=== PATIENT | female | born 1980 | race Caucasian/White ===

== ENCOUNTER 2025-02-06 10:37 | Outpatient (CLI) | payer OTHER, SELFPAY ==
--- OUTSIDE RECORDS SUMMARY | 2025-02-06 10:49 | XMS_ITS | Encounter Summary ---
Author Organization [facility] Address [address] [place] [address] Care Team Providers Care Title Searcher Name Role Phone Unavailable Primary Care Provider Unavailabl e Encounter Details Date Type Department Care Team (Late st Contact Info) Description 03/07/2024 Lab Requisition [facility] - DermPath Lab [address] [place] [id number] Eloisa Collier PA-C [address] [place] [address] Melanocytic nevi of scalp and neck; Melanocytic nevi of trunk; Other skin changes; Other disturbances of skin sensation Social History Tobacco Use Types Packs/Day Years Used Date Smoking Tobacco: Never Smokeless Tobacco: Never Alcohol Use Standard Drinks/Week Comments Yes 0 (1 standard drink = 0.6 oz pur e alcohol) 0-2 per week Comments No Sex and Gender Information Value Date Recorded Sex Assigned at Not on file Legal Sex Female 7:36 PM CDT Gender Identity Not on file Sexual Orientation Not on file 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
--- OUTSIDE RECORDS SUMMARY | 2025-02-06 10:49 | XMS_ITS | Clinical Summary ---
Author Organization [facility] Address [address] [place] [address] Care Team Providers Care Plant Protection Supervisor Name Role Phone Ileana Pickens MD Primary Care Provider Allergies No known active allergies Medications losartan (COZAAR) 100 mg tabletIndicatio ns:hypertension Take 1 tablet (100 mg total) by mouth nightly Active hydroCHLOROthia zide (HYDRODIURIL) 25 mg tabletIndicatio ns:hypertension Take 25 mg by mouth nightly Active multivitamin capsule Take 1 capsule by mouth nightly Active triamcinolone acetonide (NASACORT NASL) Administer into affected nostril(s) as needed Active dextroamphetami ne-amphetamine XR (ADDERALL XR) 10 mg 24 hr capsule TAKE 1 CAPSULE BY MOUTH EVERY MORNING NEEDED 4 Active metFORMIN XR (GLUCOPHAGE XR) 500 mg 24 hr tablet Take 1 tablet (500 mg total) by mouth daily 4 Active venlafaxine XR (EFFEXOR-XR) 75 mg 24 hr capsule Take 1 capsule (75 mg total) by mouth daily 4 Active buPROPion SR (ZYBAN) 150 mg 12 hr tabletIndicatio ns:Hypoactive sexual desire disorder Take 1 tablet (150 mg total) by mouth 2 (two) times a day 60 tablet 3 5 Active drospirenone-et hinyl estradioL (GOVIND,GIANVI) 3-0.02 mg per tabletIndicatio ns:PMDD (premenstrual dysphoric disorder) Take 1 tablet by mouth daily Skip placebos 84 tablet 3 5 Active Active Problems Problem Noted Date Diagnosed Date PMS (premenstrual syndrome) 02/05/2021 Encounter for cosmetic surgery 03/28/2020 Overview (03/28/2020): Added automatically from request for surgery [id number] Encounters Date Type Department Care Team Description 01/04/2025 1:45 PM CDT Office Visit [facility] Obstetrics and Gynecology [address] [facility] 1st Floor [address] [place] [address] Taylor Gilbert MD PMDD (premenstrual dysphoric disorder) (Primary Dx); Hypoactive sexual desire disorder from Last 3 Months Immunizations Immunization Administration Dates Next Due Pfizer SARS-CoV-2 Monovalent Vaccination (12+ Yrs) PURPLE 10/01/2020,09/09/2020 Surgical History Surgery Date Site/Laterality Comments OVARIAN CYST REMOVAL APPENDECTOMY BLADDER SUSPENSION DILATION AND CURETTAGE OF UTERUS ENDOMETRIAL ABLATION WISDOM TOOTH EXTRACTION Medical History Medical History Date Comments Hypertension PONV (postoperative nausea and vomiting) Relived with patch Hyperlipidemia Family History Medical History Relation Name Comments Brain Aneurysm Father Hypertension Father Diabetes Maternal Grandfather Hyperlipidemia Mother Hypertension Mother Diabetes Paternal Grandfather Relation Name Status Comments Father Maternal Grandfather Mother Paternal Grandfather Social History Tobacco Use Types Packs/Day Years Used Date Smoking Tobacco: Never Smokeless Tobacco: Never Tobacco Cessation:Counseling Given: Not Answered Alcohol Use Standard Drinks/Week Comments Yes 3 (1 standard drink = 0.6 oz pur e alcohol) PHQ-2 Answer Date Recorded PHQ-2 Total Score (If total score is 3 or more points, staff should administer the PHQ-9) 2 01/18/2022 Comments No Sex and Gender Information Value Date Recorded Sex Assigned at Not on file Legal Sex Female 11:19 AM CDT Gender Identity Female 09/28/2023 11:17 AM BLINDSTITCH LAPEL PADDER Sexual Orientation Not on file Obstetrics History Para Term AB IAB SAB Ectopic Multiple Livin g Live Births 3 2 2 0 1 0 1 0 0 2 2 Date Outcome GA Total Labor Labor/2nd/3rd Weight Sex Type Anes PTL Molly A1 A5 Name Clin SAB 08/27 13 Term 41w 0d 4.281 kg (9 lb 7 oz) M Vag-S pont Epidura l N Living Complications:None 03/27 16 Term 37w 0d 3.175 kg (7 lb) F Vag-S pont Epidura l N Living Complications:None Last Filed Vital Signs Vital Sign Reading Time Taken Comments Blood Pressure 135/86 01/04/2025 1:58 PM CDT Pulse 73 01/04/2025 1:58 PM CDT Temperature 37.2 C (99 F) 03/17/2024 2:24 PM CDT Respiratory Rate 21 03/17/2024 2:24 PM CDT Oxygen Saturation 99% 03/17/2024 2:24 PM CDT Inhaled Oxygen Concentration - - Weight 72.1 kg (159 lb) 01/04/2025 1:58 PM CDT Height 177.8 cm (5' 10) 01/04/2025 1:58 PM CDT Body Mass Index 22.81 01/04/2025 1:58 PM CDT Plan of Treatment Health Maintenance Due Date Last Done Comments Hepatitis C Screening 1982 Varicella Vaccines (1 of 2 - 13+ 2-dose series) 1995 Hepatitis B Screening 2000 Cervical Cancer Screening 01/18/20232021, 01/14/2021 Depression Screening 01/18/2023 01/18/2022, 01/14/2021 Regular Well Visit/Exam 18-64 01/18/2023, 01/14/2021 Covid-19 Vaccine (2023-2 5 season) 2024 05/09/2021, 10/01/2020, 09/09/2020 Breast Cancer Screening-Mammogram 02/13/2025 02/14/2024, 08/27/2022, 03/20/2020 Influenza Vaccine (Season Ended) 2025 05/09/2021, 05/16/2020, 06/08/2012 DTaP/Tdap/Td Vaccine (3 - Td or Tdap) 02/09/2026 02/10/2016, 08/22/2012, 08/08/2001 HPV Vaccines Aged Out No longer eligi ble based on patient's age to complete this topic Pneumococcal vaccine <65 Aged Out No longer eligible based on patient's age to complete this topic Procedures Procedure Name Priority Date/Time Associated Diagnosis Comments SCREENING MAMMOGRAM BILATERAL W RIVER Schedule Routine, Read Routine (OP Routine) 02/14/2024 11:53 AM CDT Screening mammogram, encounter for PAP AND HIGH RISK HPV, REFLEX TO GENOTYPING Routine 01/18/2022 11:44 AM CDT Well woman exam from Last 3 Months or Most Recently Relevant to Health Maintenance Results * Screening Mammogram Bilateral W River (02/14/2024 11:53 AM CDT) Anatomical Region Laterality Modality Breast Bilateral Mammography 02/14/2024 12:4 5 PM CDT Impressions 02/14/2024 12:45 PM CDT No evidence of malignancy in either breast. FINAL ASSESSMENT: BI-RADS Category 2: Benign. RECOMMENDATION: Recommend return for annual screening mammogram in 12 months. Electronically signed by: ELENA VEE MD Narrative 02/14/2024 12:45 PM CDT EXAMINATION: BILATERAL SCREENING MAMMOGRAM COMPARISON: 08/27/2022, 03/20/2020 TECHNIQUE: Full-field 2D and digital breast tomosynthesis (DBT) images were obtained. CAD was utilized. BREAST PARENCHYMAL COMPOSITION: The breasts are heterogenously dense, which may obscure small masses. FINDINGS: There is no suspicious mass, calcification, or distortion in either breast. Changes consistent with bilateral reduction mammoplasty are noted. us Self Screening Mammogram IMG MAMMO PROCEDURES Fi nal Result * Pap and High Risk HPV, reflex to Genotyping (01/18/2022 11:44 AM CDT) Clinical indication Comment [facility] - 01 Comment: NEGATIVE FOR INTRAEPITHELIAL LESION OR MALIGNANCY. THIS SPECIMEN WAS RESCREENED PART OF OUR SILVERWARE WASHER PROGRAM. Specimen adequacy: Comment [facility] - 01 Comment: Satisfactory for evaluation. No endocervical component is identified. The absence of an endocervical component was confirmed by an additional screening evaluation. Clinician provided ICD10 Comment [facility] 02 Comment:Z01.419 Performed by Comment [facility] - 01 Comment:Debra Garcia, Cytotech nologist ([facility]) QC reviewed by Comment [facility] - 01 Comment:He Wooten, Cyto technologist ([facility]) . . [facility] - 01 Note: Comment [facility] 02 Comment: The Pap smear is a screening test designed to aid in the detection of premalignant and malignant conditions of the uterine cervix. It is not a diagnostic procedure and should not be used as the sole means of detecting cervical cancer. Both false-positive and false-negative reports do occur. Test methodology Comment [facility] 02 Comment: This liquid based ThinPrep(R) pap test was screened with the use of an image guided system. HPV Aptima Negative Negative [facility] 03 Comment: This nucleic acid amplification test detects fourteen high-risk HPV types (16,18,31,33,35,39,45,51,52,56,58,59,66,68) without differentiation. Thin prep 01/18/2022 11:4 4 AM CDT 01/19/2022 Narrative [facility] - 01/22/2022 5:08 PM CDT [facility] [address] [place] [id number] Advertising Copy Writer: Suman Moore MD, Phone: [phone] Performed at: 02 - [address] [id number] Advertising Copy Writer: Shavon Manning MD, Phone: [phone] Performed at: 03 - [address] [id number] Advertising Copy Writer: Shavon Manning MD, Phone: [phone] Specimen Comment: Source.............Cervix;Endocervix Specimen Comment: No. of containers..01 ThinPrep Vial Merna Becker NP LAB CYTOLOGY ORDERABLES Final Re sult [facility] - 01 LAB [facility] 02 LAB ALON 03 from Last 3 Months or Most Recently Relevant to Health Maintenance Insurance [employer] CHOICE PLUS [id number] [place] [address] CHOICE PLUS Care Teams Plant Protection Supervisor Relationship Specialty [place] [address] [facility] [address] [place] [address] PCP - General Plastic Surgery 04/15/20
--- OUTSIDE RECORDS SUMMARY | 2025-02-06 10:49 | XMS_ITS | Clinical Summary ---
Author Organization [facility] Address [address] [place] [place] [address] Care Team Providers Care Gizzard Skin Remover Name Role Phone Unavailable Primary Care Provider Unavailabl e Source Comments [facility],non-owned Affiliates and Associated Physician Practices is amultiple site organization consisting of ambulatory clinics and hospital sitesin [place], [place], [place] and [place]. This disclosure is being madepursuant to the Care Everywhere program and may not contain all information available regarding this patient. Last updated 18.[facility] Allergies Active Allergy Reactions Criticality Noted Date Comments Codeine Rash Medium 10/19/2017 Medications * Be aware that medications may not be up to date on this document. Alwaysverify current medications with the patient. PROGESTERONE PO Acti ve multivitamin daily tablet Take 1 tablet by mouth daily with food Active hydroCHLOROthiaz jesusita (HYDRODIURIL) 25 MG tablet Take 25 mg by mouth once daily Active Active Problems Problem Noted Date Diagnosed Date Essential hypertension 10/01/2018 Overview (10/08/2018): 09/26 Renin 0.476 aldosterone 6.3 (ratio 13) Pure hypercholesterolemia 10/01/2018 Overview (10/04/2018): 09/26 Cholesterol 213 HDL 43 LDL 134 triglyceride 180, normal CMP 06/16 cholesterol 193 HDL 68 LDL 101 triglyceride 121 06/15 cholesterol 176 HDL 56 LDL 106 triglyceride 69 Family History Medical History Relation Name Comments Aneurysm, Brain Father at age 49 Other - Cardiac Father CAD (Coronary Artery Disease) Mother Hypertension Mother Relation Name Status Comments Brother Alive no heart diseas e Daughter Alive no heart dz Father (Age 49) no heart d isease; brain aneurysm; HTN in 40s Mother Alive carotid dz and PAD at 61; HTN onset in 30s Son Alive no heart dz Social History Tobacco Use Types Packs/Day Years [...] file Not on file Not on file Last Filed Vital Signs Vital Sign Reading Time Taken Comments Blood Pressure 138/86 07/31/2019 11:56 AM BINDER STRIPPER MACHINE Pulse 88 07/31/2019 11:56 AM BINDER STRIPPER MACHINE Temperature 36.7 C (98 F) 07/31/2019 11:56 AM BINDER STRIPPER MACHINE Respiratory Rate 18 07/31/2019 11:56 AM BINDER STRIPPER MACHINE Oxygen Saturation 98% 07/31/2019 11:56 AM BINDER STRIPPER MACHINE Inhaled Oxygen Concentration - - Weight 81.6 kg (180 lb) 07/31/2019 11:56 AM BINDER STRIPPER MACHINE Height 177.8 cm (5' 10) 07/31/2019 11:56 AM BINDER STRIPPER MACHINE Body Mass Index 25.83 07/31/2019 11:56 AM BINDER STRIPPER MACHINE Plan of Treatment Health Maintenance Due Date Last Done Comments MAMMOGRAM 1982 HIV SCREENING 1997 HEPATITIS C SCREENING 04/01/2000 DTAP/TDAP/TD VACCINES (1 - Tdap) 2001 HEPATITIS B VACCINE (1 of 3 - 19+ 3-dose series) 2001 PAP SMEAR 09/22/2021 09/22/2018 LIPID TESTING 10/03/2023 10/03/2018 COVID-19 VACCINE (1 - 2023-2 5 season) 2024 DEPRESSION SCREENING 08/08/2024 INFLUENZA VACCINE (#1) 2025 06/08/2012 ZOSTER VACCINE (1 of 2) 2032 HIB VACCINE Aged Out No longer eligi ble based on patient's age to complete this topic HPV VACCINE Aged Out No longer eligi ble based on patient's age to complete this topic MENINGOCOCCAL (Group B) VACC INE SHARED DECISION-MAKING Aged Out No longer eligibl e based on patient's age to complete this topic MENINGOCOCCAL GROUPS A/C/Y/W VACCINE Aged Out No longer eligible b ased on patient's age to complete this topic PNEUMOCOCCAL VACCINE Aged Out No long er eligible based on patient's age to complete this topic Procedures Procedure Name Priority Date/Time Associated Diagnosis Comments LIPID PROFILE REFLEX LDL DIRECT Routine 10/03/2018 10:02 AM BINDER STRIPPER MACHINE Pure hypercholesterolemia from Last 3 Months or Most Recently Relevant to Health Maintenance Results * (ABNORMAL) LIPID PROFILE REFLEX LDL DIRECT (10/03/2018 10:02 AM BINDER STRIPPER MACHINE) Cholesterol 213(H) 100 - 199 mg/dL [facility] INSURANCE BILL Triglycerides 180(H) 0 - 149 mg/dL [facility] INSURANCE BILL HDL Cholesterol 43 >39 mg/dL [facility] INSURANCE BILL VLDL Calculated 36 5 - 40 mg/dL [facility] INSURANCE BILL LDL Calculated 134(H) 0 - 99 mg/dL [facility] INSURANCE BILL Comment NOT NEEDED [facility] INSURANCE BILL Comment:Ancillary determined the test is not needed Cholesterol/HDL Ratio 5.0(H) 0.0 - 4.4 ratio [facility] INSURANCE BILL Comment: T. Chol/HDL Ratio Men Women 1/2 Avg.Risk 3.4 3.3 Avg.Risk 5.0 4.4 2X Avg.Risk 9.6 7.1 3X Avg.Risk 23.4 11.0 LDL/HDL Ratio 3.1 0.0 - 3.2 ratio [facility] INSURANCE BILL Comment: LDL/HDL Ratio Men Women 1/2 Avg.Risk 1.0 1.5 Avg.Risk 3.6 3.2 2X Avg.Risk 6.2 5.0 3X Avg.Risk 8.0 6.1 FASTING Blood BLOOD SPECIMEN / Unknown 10/03/2018 10:02 AM BINDER STRIPPER MACHINE 10/03/2018 Narrative [facility] INSURANCE BILL - 10/04/2018 7:15 AM BINDER STRIPPER MACHINE A courtesy copy of this report has been sent to the patient. Resulting Agency Comment [facility] [address] [facility] [id number] Oli Tate MD LAB - CHEMISTRY ORDERABLES F inal Result [facility] INSURANCE BILL [address] [place] [address] from Last 3 Months or Most Recently Relevant to Health Maintenance Insurance ANTHEM ANTHEM
--- OUTSIDE RECORDS SUMMARY | 2025-02-06 10:49 | XMS_ITS | Referral Summary ---
Author Organization [facility] Address [address] [facility] [place] [address] Care Team Providers Care Rf Engineer Name Role Phone Ileana Pickens MD Primary Care Provider Encounters Date Type Department Care Team Description 01/04/2025 1:45 PM CDT Office Visit [facility] Obstetrics and Gynecology [address] [facility] 1st Floor [address] [place] [address] Taylor Gilbert MD PMDD (premenstrual dysphoric disorder) (Primary Dx); Hypoactive sexual desire disorder from Last 3 Months Allergies No known active allergies Medications losartan [...] (03/28/2020): Added automatically from request for surgery [id number] Immunizations Immunization Administration Dates Next Due Benjamin's Desk SARS-CoV-2 Monovalent Vaccination (12+ Yrs) PURPLE 10/01/2020,09/09/2020 Social History Tobacco Use Types Packs/Day Years [...] CDT Gender Identity Female 09/28/2023 11:17 AM 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 Specimen adequacy: Comment [facility] - 01 Comment: Satisfactory for evaluation. No endocervical component is identified. The absence of an endocervical component was confirmed by an additional screening evaluation. Clinician provided ICD10 Comment [facility] 02 Comment:Z01.419 Performed by Comment [facility] - 01 Comment:Debra Garcia, Cytotech nologist ([facility]) QC reviewed by Comment [facility] - 01 Comment:He Wooten, Cyto technologist ([facility]) . . [facility] - 01 Note: Comment [...] 01/22/2022 5:08 PM CDT [facility] at: [facility] [address] [place] [id number] Masonry Contractor Administrator: Suman Moore MD, Phone: [phone] Performed at: - [address] [id number] Masonry Contractor Administrator: Shavon Manning MD, Phone: [phone] Performed at: 03 - [address] [id number] Masonry Contractor Administrator: Shavon Manning MD, Phone: [phone] Specimen Comment: Source.............Cervix;Endocervix Specimen Comment: No. of containers..01 ThinPrep Vial Merna Becker NP LAB CYTOLOGY ORDERABLES Final Re sult [facility] - 01 LAB [facility] 02 LAB ALON 03 from Last 3 Months or Most Recently Relevant to Health Maintenance Insurance [facility] CHOICE PLUS [id number] [place] [address] CHOICE PLUS Care Teams Rf Engineer Relationship Specialty [place] [address] [facility] [address] [place] [address] PCP - General Plastic Surgery 04/15/20
[2025-02-06 18:56] LABS: Hematocrit 43.9 % (37.0-47.0); Hemoglobin 14.0 g/dL (12.0-15.0); Immature Granulocyte Percent A 0.2 % (0-0.5); Lymphocytes Absolute Auto 2.93 K/mm3 (0.9-3.2); Mean Corpuscular HGB Conc 31.9 g/dl (32-36); Mean Corpuscular Hemoglobin 29.1 pg (26-34); Mean Corpuscular Volume 91.3 fl (80-100); Nucleated Red Blood Cells Absolute Auto 0.000 K/mm3 (0.0-0.012); Nucleated Red Blood Cells Perc 0.0 % (0.0-0.2); Platelet Count Result 384 k/mm3 (150-375); Red Blood Count 4.81 M/mm3 (4.2-5.4); White Blood Count 5.5 K/mm3 (4.5-10.0)
[2025-02-06 19:04] LABS: Alanine Aminotransferase 16 U/L (6-35); Albumin Level 4.3 g/dL (3.5-5.1); Alkaline Phosphatase 55 U/L (38-126); Anion Gap 7 mmol/L (4-12); Aspartate Amino Transferase 54 U/L (14-36); Bilirubin,Total 0.4 mg/dL (0.2-1.3); Blood Urea Nitrogen 11 mg/dL (7-17); Calcium 9.0 mg/dL (8.4-10.2); Carbon Dioxide 24 mmol/L (22-30); Chloride 107 mmol/L (98-107); Cholesterol 244 mg/dL (0-200); Estimated Glomerular Filt Rate > 60; Glucose 99 mg/dL (65-110); HDL Direct 68 mg/dL; Magnesium 2.2 mg/dL (1.6-2.3); Potassium 4.1 mmol/L (3.4-5.0); Sodium 138 mmol/L (137-145); Total Protein 7.7 g/dL (6.3-8.2); Triglycerides 166 mg/dL (<150)
[2025-02-06 19:30] LABS: Hemoglobin A1C. 5.4 % (<5.7)
[2025-02-06 19:34] LABS: Thyroid Stimulating Hormone 3.030 uIU/mL (0.465-4.680)
== END 2025-02-06 10:38 | disposition home or self-care (01) ==
LOC: ANHBWCLAB 10:39
PROVIDERS: PCP Nurse Practitioner Adult Health; Visit Provider Nurse Practitioner Adult Health
DX: Z13.9 Encounter for screening, unspecified (principal); I10 Essential (primary) hypertension; R73.03 Prediabetes
CPT/HCPCS: 36415; 80053; 80061; 83036; 83735; 84443; 85025

== ENCOUNTER 2025-02-13 14:49 | Outpatient (CLI) | payer OTHER, SELFPAY ==
--- OUTSIDE RECORDS SUMMARY | 2025-02-13 14:52 | XMS_ITS | Encounter Summary ---
Author Organization [facility] Address [address] [place] [address] Care Team Providers Care Farrowing Worker Name Role Phone Gerald Allen MD Primary Care Provider [phone] Encounter Details Date Type Department Care Team (Latest Contact Info) Description 09/06/2007 Outpatient Historical [facility] Bartolo Lin MD NO ADDRESS ON FILE Lump or Mass in Breast Social History Tobacco Use Types Packs/Day Years Used Date Smoking Tobacco: Never Assessed Comments Unknown Sex and Gender Information Value Date Recorded Sex Assigned at Not on file Legal Sex Female 2:44 AM INDUCTION COORDINATION POWER ENGINEER Gender Identity Not on file Sexual Orientation Not on file documented as of this encounter Plan of Treatment Not on file documented as of this encounter Procedures Procedure Name Priority Date/Time Associated Diagnosis Comments US BREAST Routine 09/06/2007 8:23 AM INDUCTION COORDINATION POWER ENGINEER documented in this encounter Results * US BREAST (09/06/2007 8:23 AM INDUCTION COORDINATION POWER ENGINEER) Anatomical Region Laterality Modality Other 09/06/2007 8:23 AM INDUCTION COORDINATION POWER ENGINEER Narrative 09/06/2007 11:31 AM INDUCTION COORDINATION POWER ENGINEER [facility] [address] [place], [place] [address] Admit Date: 09/06/2007 YANCI ROBLEDO Sex: F Admit Prov: BARTOLO JARVIS Date: 1980 Primary Care Prov: RADHA BRAY CMRN: [id number] Room: SANDRO SSN: [id number] IMAGING SERVICES Ordering Prov: BARTOLO JARVIS Accession Number: [id number] Interpretation Breast sonogram, 09/06/2007 History: Palpable lump upper-outer right breast. Sonography of the palpable area in the upper-outer right breast reveals heterogeneously dense or echogenic fibroglandular tissue. No discrete mass either cystic or solid is identified. No suspicious shadowing or distortion is identified. Impression: Category 1 negative Normal sonographic appearance to the palpable area in the upper-outer right breast. Clinical followup therefore recommended. Dictated by: LAMONT MCKINNEY Electronically signed by: LAMONT MCKINNEY 09/06/2007 11:31 Transcribed: 09/06/2007 08:27 AMK Procedure Note Provider, Historical - 09/06/[address] [address] Admit Date: 09/06/2007 YANCI ROBLEDO Sex: F Admit Prov: BARTOLO JARVIS Date: 1980 Primary Care Prov: RADHA BRAY CMRN: [id number] Room: SANDRO SSN: [id number] IMAGING SERVICES Ordering Prov: BARTOLO JARVIS Interpretation Breast sonogram, 09/06/2007 History: Palpable lump upper-outer right breast. Sonography of the palpable area in the upper-outer right breastreveals heterogeneously dense or echogenic fibroglandular tissue. No discretemass either cystic or solid is identified. No suspicious shadowing ordistortion is identified. Impression: Category 1 negative Normal sonographic appearance to the palpable area in the upper-outerright breast. Clinical followup therefore recommended. Dictated by: LAMONT MCKINNEY Electronically signed by: LAMONT MCKINNEY 09/06/2007 11:31 Transcribed: 09/06/2007 08:27 AMK Bartolo Jarvis MD ORDERABLES Final Resul t documented in this encounter Visit Diagnoses Diagnosis Lump or mass in breast documented in this encounter Care Teams Farrowing Worker Relationship Specialty Start Date End Date Gerald Allen MD PCP - General Family Practice 03/05/20 documented as of this encounter
--- OUTSIDE RECORDS SUMMARY | 2025-02-13 14:52 | XMS_ITS | Encounter Summary ---
Author Organization [facility] Address [address] [place] [address] Care Team Providers Care Production Team Member Name Role Phone Melony Murry NP Primary Care Provider [phone] Encounter Details Date Type Department Care Team (Late st Contact Info) Description 02/09/2025 Results Follow-Up [facility] at [address] [id number] Irish Padilla NP [address] [facility] [address] [place], [place] [id number] Throat culture Throat Social History Tobacco Use Types Packs/Day Years Used Date Smoking Tobacco: Never Smokeless Tobacco: Never Alcohol Use Standard Drinks/Week Comments Yes 3 [...] CDT Gender Identity Female 09/28/2023 11:17 AM NATIONAL RECRUITER Sexual Orientation Not on file documented as of this encounter Plan of Treatment Not on file documented as of this encounter Visit Diagnoses Not on filedocumented in this encounter Care Teams Production Team Member Relationship Specialty Start Date End Date Melony Murry NP [address] [place] [place] [address] [place] [address] PCP - General Nurse Practitioner 02/08/25 documented as of this encounter
--- OUTSIDE RECORDS SUMMARY | 2025-02-13 14:52 | XMS_ITS | Clinical Summary ---
Author Organization [facility] cine Address [address] [place] [address] Care Team Providers Care Rn Staffing Name Role Phone Gerald Allen MD Primary Care Provider [phone] Allergies Active Allergy Reactions Criticality Noted Date Comments Amoxicillin-Pot Clavulanate Rash Low 05/03/20 06 Codeine Rash Low 05/03/2006 Medications multivitamin (DAILY-CHELSEA) tablet Take 1 Tablet by mouth daily. Active venlafaxine (EFFEXOR XR) 150 mg Extended Release 24 hour capsuleIndicati ons: depression Take 1 Capsule (150 mg) by mouth daily. 90 Capsule 4 09/22/2018 Active progesterone micronized (PROMETRIUM) 200 mg CapsuleIndicati ons:PMS (premenstrual syndrome) Take 1 Capsule (200 mg) by mouth daily. 90 Capsule 4 09/22/2018 Active Active Problems Problem Noted Date Diagnosed Date Menorrhagia with regular cycle 09/27/2017 SHEILA (stress urinary incontinence, female) 201703/30/16 - - A2GDM - [place] - DS 03/29/2016 Normal labor 03/29/2016 PIH ( induced hyper tension), previous condition 09/23/2015 s/p 08/22, N/V/D Gastroen teritis? Elevated BP, Pre-E labs (elevated LFTs trending down UA neg protein) Repeat Pre-E labs in AM pending, Blount neg, Hepatitis panel pending 08/26/2012 Nausea with vomiting 08/26/2012 1/15, boy 08/23/2012 Active labor 08/21/2012 Acne 06/06/2007 Irritable bowel syndrome 05/03/2006 Generalized anxiety disorder 05/03/2006 Family history of other neurological diseases Resolved Problems Problem Noted Date Diagnosed Date Resolved Date Missed ab s/p suction D&C on 09/12/14 09/11/2014 11/18/2015 labor, SROM @0410, Gbs-, O+, inc BPs- labs wnl 08/22/2012 08/23/2012 Acute sinusitis, unspecified 10/12/2007 07/02/2008 Obstruction of eustachian tube, unspecified 10/12/2007 07/02/2008 Encounters Date Type Department Care Team Description 01/22/2025 External Device Data ST[facility] ABSTRACTION Provider, Abstract 01/01/2025 External Device Data ST[facility] ABSTRACTION Provider, Abstract 12/26/2024 External Device Data ST[facility] ABSTRACTION Provider, Abstract 12/25/2024 External Device Data ST[facility] ABSTRACTION Provider, Abstract 12/18/2024 External Device Data STL ABSTRACTION Provider, Abstract 12/18/2024 External Device Data STL ABSTRACTION Provider, Abstract 12/18/2024 External Device Data STL ABSTRACTION Provider, Abstract from Last 3 Months Immunizations Immunization Administration Dates Next Due (ADACEL/BOOSTRIX)(10 YR UP) TDAP VACCINE, 0.5ML, IM 02/10/2016,08/22/2012 (TDVAX)(7 YRS UP) TETANUS AN D DIPHTHERIA TOXOIDS, ADSORBED (2 LF OF TETANUS TOXOID AND 2 LF OF DIPHTHERIA TOXOID), 0.5ML (PF), IM 08/08/2001 Influenza Seasonal Unspecified Formulation IM Skin Test TB 03/16/2010 Family History Medical History Relation Name Comments Healthy Brother Other Father brain aneurysm Heart Disease Maternal Grandfather Heart Disease Maternal Grandmother Hypertension Mother Other Mother high cholestero l Diabetes Paternal Grandfather Breast Cancer Paternal Grandmother Other Paternal Grandmother lung pr oblems Ovarian Cancer Neg Hx Relation Name Status Comments Brother Alive Father Maternal Grandfather Maternal Grandmother Mother Alive Paternal Grandfather Alive Paternal Grandmother Social History Tobacco Use Types Packs/Day Years Used Date Smoking Tobacco: Never Smokeless Tobacco: Never Alcohol Use Standard Drinks/Week Comments Yes 0 (1 standard drink = 0.6 oz pur e alcohol) 0-1/month Comments No Sex and Gender Information Value Date Recorded Sex Assigned at Not on file Legal Sex Female 2:44 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 Gender Identity Not on file Sexual Orientation Not on file 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 Not on file Not on file Not on file Not on file Not on file Last Filed Vital Signs Vital Sign Reading Time Taken Comments Blood Pressure 154/110 09/22/2018 11:02 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 Pulse 82 05/18/2018 11:36 AM CDT Temperature 36.2 C (97.1 F) 11/21/2017 3:43 PM CDT Respiratory Rate 16 05/18/2018 11:36 AM CDT Oxygen Saturation 98% 11/21/2017 3:43 PM CDT Inhaled Oxygen Concentration - - Weight 85.3 kg (188 lb) 09/22/2018 11:02 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 Height 177.8 cm (5' 10) 09/22/2018 11:02 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 Body Mass Index 26.98 09/22/2018 11:02 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 Plan of Treatment Health Maintenance Due Date Last Done Comments HEPATITIS B VACCINES (1 of 3 - 19+ 3-dose series) 2001 PAP SMEAR 09/22/2021 09/22/2018, 02/04/2018, 08/13/2016, Additional history exists BREAST CANCER SCREENING 2022 03/20/2020 CERVICAL CANCER SCREENING 09/22/2023 HPV/Cotest (21-29) 09/22/2023 09/22/2018, 0 09/16/2017, 08/13/2016, Additional history exists HPV/Cotest (30-65) 09/22/2023 09/22/2018, 0 09/16/2017, 08/13/2016, Additional history exists INFLUENZA VACCINE (#1) 2025 06/08/2012 DTAP/TDAP/TD VACCINES (3 - Td or Tdap) 02/09/2026 02/10/2016, 08/22/2012, 08/08/2001 HPV VACCINES Aged Out No longer eligi ble based on patient's age to complete this topic Medical Devices Implanted Type Area Operations Business Partner Device Identifier Shelf Expiration Date Model / Serial / Lot Sling Desara System Kate-[id number] - [id number] Implanted:Qty: 1 on 11/21/2017 by Dane Donis DO at [facility] [place] S[place] N/A: Bladder [employer] 05/17/2022 [id number]-[id number] / / [id number] Procedures Procedure Name Priority Date/Time Associated Diagnosis Comments MAMMO SCREEN BILAT W OR WO CAD Routine 03/20/2020 11:19 AM CDT Breast cancer screening by mammogram CERV/VAG CYTO SCREEN PAP RLFX HPV Routine 09/22/2018 11:51 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 Well woman exam with routine gynecological exam from Last 3 Months or Most Recently Relevant to Health Maintenance Results * MAMMO SCREEN BILAT W OR WO CAD (03/20/2020 11:19 AM CDT) Anatomical Region Laterality Modality Breast Bilateral Mammography 03/20/2020 11:2 0 AM CDT Impressions 03/21/2020 12:28 PM CDT IMPRESSION: 1. No concerning findings. OVERALL FINAL ASSESSMENT: BI-RADS CATEGORY 1 - Negative. RECOMMENDATIONS: 1. Recommend annual mammography at age 40 or when clinically appropriate. 2. The patient may benefit from 3-D mammography and/or annual screening breast ultrasound given the density of the breast tissue. Narrative 03/21/2020 12:28 PM CDT BILATERAL SCREENING DIGITAL MAMMOGRAM WITH CAD DATE: 03/20/2020 11:19 AM DICTATION LOCATION: [facility] HISTORY: Routine yearly screening exam. TECHNIQUE: Standard images of both breasts were obtained on a digital system. CAD was utilized. COMPARISON: None, baseline. BREAST COMPOSITION: Heterogeneously dense, which limits the sensitivity of mammography FINDINGS: No concerning dominant masses, suspicious calcifications, parenchymal asymmetries or areas of architectural distortion are identified in either breast. Procedure Note Yonathan Olvera MD - 03/21/2020 BILATERAL SCREENING DIGITAL MAMMOGRAM WITH CAD DATE: 03/20/2020 11:19 AM DICTATION LOCATION: [facility] HISTORY: Routine yearly screening exam. TECHNIQUE: Standard images of both breasts were obtained on a digital system. CAD was utilized. COMPARISON: None, baseline. BREAST COMPOSITION: Heterogeneously dense, which limits the sensitivity of mammography FINDINGS: No concerning dominant masses, suspicious calcifications, parenchymal asymmetries or areas of architectural distortion are identified in either breast. IMPRESSION: 1. No concerning findings. OVERALL FINAL ASSESSMENT: BI-RADS CATEGORY 1 - Negative. RECOMMENDATIONS: 1. Recommend annual mammography at age 40 or when clinically appropriate. 2. The patient may benefit from 3-D mammography and/or annual screening breast ultrasound given the density of the breast tissue. us External Provider [facility] MAMMO ORDERABLES Final R esult * CERV/VAG CYTO SCREEN PAP RLFX HPV (09/22/2018 11:51 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) CLINICAL INFORMATION Information not provided 10/02/2018 9:19 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 [email or web address] LAST MENSTRUAL PERIOD Information not provided 10/02/2018 9:19 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 [email or web address] PREV PAP: Information not provided 10/02/2018 9:19 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 [email or web address] PREV BX: Information not provided 10/02/2018 9:19 AM [facility] SOURCE Endocervix 10/02/2018 9:19 AM [facility] ADEQUACY: SEE COMMENT 10/02/2018 9:19 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 [email or web address] Comment: Satisfactory for evaluation. Endocervical/transformation zone component present. Age and/or menstrual status not provided PAP INTERP Negative for intraepithelial lesion or malignancy. 10/02/2018 9:19 AM [facility] COMMENT This Pap test has been evaluated with computer assisted technology. 10/02/2018 9:19 AM [facility] WEDDING DAY COORDINATOR: SEE COMMENT 2018 9:19 AM [facility] Comment: RICHIE, CT(ASCP) CT screening location: [place] [address] [place] [address] EXPLANATORY NOTE SEE COMMENT 019 9:19 AM [facility] Comment: EXPLANATORY NOTE: The Pap is a screening test for cervical cancer. It is not a diagnostic test and is subject to false negative and false positive results. It is most reliable when a satisfactory sample, regularly obtained, is submitted with relevant clinical findings and history, and when the Pap result is evaluated along with historic and current clinical information. Genital SWAB OF ENDOCERVIX / Unknown Collection / Unknown 09/22/2018 11:51 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 09/26/2018 1:32 PM EMPLOYMENT AGENCY MANAGER Narrative [facility] - 10/02/2018 9:19 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 Performing Organization Information: Site ID: [place] Name[facility] Address: [address] [place] [address] Director: Sharyn Mayfield Dane Raza Super DO PATHOLOGY/CYTOLOGY ORDERABLES F inal Result [facility] [phone] from Last 3 Months or Most Recently Relevant to Health Maintenance Insurance BC[employer] BLUE PREFERRED [employer] Commercial Advance Directives For more information, please contact: [phone] * Full Code (Latest Code Status on File) Date Activated Date Inactivated Comments 11/21/2017 9:24 AM 11/21/2017 6:16 PM * Full Code Date Activated Date Inactivated Comments 03/30/2016 11:11 AM 04/01/2016 12:56 PM * Full Code Date Activated Date Inactivated Comments 03/29/2016 10:45 AM 03/30/2016 11:11 AM * Full Code Date Activated Date Inactivated Comments 09/12/2014 10:06 AM 09/12/2014 1:54 PM * Full Code Date Activated Date Inactivated Comments 09/12/2014 8:57 AM 09/12/2014 10:06 AM Care Teams Rn Staffing Relationship Specialty Start Date End Date Gerald Allen MD PCP - General Family Practice 03/05/20
--- OUTSIDE RECORDS SUMMARY | 2025-02-13 14:52 | XMS_ITS | Referral Summary ---
Author Organization [facility] Address [address] [place] [address] Care Team Providers Care Internal Carver Name Role Phone Melony Murry NP Primary Care Provider [phone] Encounters Date Type Department Care Team Description 02/09/2025 Results Follow-Up [facility] at [address] [phone] Irihs Padilla NP Throat culture Throat 02/08/2025 11:14 AM CDT - 02/08/2025 11:59 PM CDT Hospital Encounter [address] [address] Acute sore throat Discharge Disposition: Discharge to home or self care 02/08/2025 11:00 AM CDT Office Visit [facility] [address] [phone] Sabas Bowman NP Exposure to strep throat (Primary Dx); Acute sore throat; Elevated blood pressure reading in office with diagnosis of hypertension 01/04/2025 1:45 PM CDT Office Visit [facility] Obstetrics and Gynecology [facility] 1st Floor [address] [place] [address] Taylor Gilbert MD PMDD (premenstrual dysphoric disorder) [...] Skip placebos 84 tablet 3 5 Active penicillin v potassium (VEETID) 500 mg tablet Take 1 tablet (500 mg total) by mouth 2 (two) times a day for 10 days 20 tablet 5 02/19/20 25 Active Active Problems Problem Noted Date Diagnosed Date PMS (premenstrual syndrome) 02/05/2021 Encounter for cosmetic surgery 03/28/2020 Overview (03/28/2020): Added automatically from request for surgery [id number] Immunizations Immunization Administration Dates Next Due Pfizer [...] CDT Gender Identity Female 09/28/2023 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 Sexual Orientation Not on file Last Filed Vital Signs Vital Sign Reading Time Taken Comments Blood Pressure 144/90 02/08/2025 10:59 AM CDT Pulse 75 02/08/2025 10:59 AM CDT Temperature 36.6 C (97.8 F) 02/08/2025 10:59 AM CDT Respiratory Rate 20 02/08/2025 10:59 AM CDT Oxygen Saturation 99% 02/08/2025 10:59 AM CDT Inhaled Oxygen Concentration - - Weight 73 kg (161 lb) 02/08/2025 10:59 AM CDT Height 177.8 cm (5' 10) 01/04/2025 1:58 PM CDT Body Mass Index 23.1 01/04/2025 1:58 PM CDT Plan of Treatment Not on file Procedures Procedure Name Priority Date/Time Associated Diagnosis Comments THROAT CULTURE Routine 02/08/2025 11:15 AM CDT Acute sore throat POCT RAPID STREP Routine 02/08/2025 11:0 9 AM CDT Acute sore throat SCREENING MAMMOGRAM BILATERAL W RIVER Schedule Routine, Read Routine (OP Routine) 02/14/2024 11:53 AM CDT Screening mammogram, encounter for PAP AND HIGH RISK HPV, REFLEX TO GENOTYPING Routine 01/18/2022 11:44 AM CDT Well woman exam from Last 3 Months or Most Recently Relevant to Health Maintenance Results * Throat culture Throat (02/08/2025 11:15 AM CDT) Report Final Report: No growth of pathogens. Comment:Testing performed by : [facility], [address] [facility], [place]., [address] Throat 02/08/2025 11:1 5 AM CDT 02/08/2025 5:49 PM CDT Narrative EMMANUELLE SINGH - 02/09/2025 2:14 PM CDT Testing performed by [facility] Microbiology Laboratory ([phone]). us Sabas Bowman NP LAB MICROBIOLOGY - [facility] JEFFRY BLACK Final Result EMMANUELLE [address] [place] [address] * POCT rapid strep A (02/08/2025 11:09 AM CDT) [facility] Signature Rapid Strep A, POC Negative Negative Swab 02/08/2025 11:0 9 AM CDT Sabas Bowman NP POINT OF CARE TEST ORDERABLES F inal Result * Screening Mammogram Bilateral W River (02/14/2024 [...] THIS SPECIMEN WAS RESCREENED PART OF OUR CAMERA MAKER PROGRAM. Specimen adequacy: Comment [facility] - 01 Comment: Satisfactory for evaluation. No endocervical component is identified. The absence of an endocervical component was confirmed by an additional screening evaluation. Clinician provided ICD10 Comment LAB ALON 02 Comment:Z01.419 Performed by Comment [facility] - 01 Comment:Debra Garcia, Cytotech nologist ([facility]) QC reviewed by Comment [facility] - 01 Comment:He Wooten, Cyto technologist ([facility]) . . [facility] - 01 Note: Comment [...] 01/22/2022 5:08 PM CDT [facility] at[facility] [address] [place] [id number] Telephone Betting Clerk: Suman Moore MD, Phone: [phone] Performed at: - [address] [id number] Telephone Betting Clerk: Shavon Manning MD, Phone: [phone] Performed at: 03 - [address] [id number] Telephone Betting Clerk: Shavon Manning MD, Phone: [phone] Specimen Comment: Source.............Cervix;Endocervix Specimen Comment: No. of containers..01 ThinPrep Vial us Merna Becker NP LAB CYTOLOGY ORDERABLES Final Re sult [facility] Organization Address City/State/ZIP Co de Phone Number [facility] - 01 LAB [facility]ON 02 LAB [facility]ON 03 from Last 3 Months or Most Recently Relevant to Health Maintenance Insurance [facility] CHOICE PLUS [facility] CHOICE PLUS [facility] CHOICE PLUS Care Teams Internal Carver Relationship Specialty Start Date End Date Melony Murry NP [facility] [place] [place] [address] PCP - General Nurse Practitioner 02/08/25
--- OUTSIDE RECORDS SUMMARY | 2025-02-13 14:52 | XMS_ITS | Encounter Summary ---
Author Organization [facility] Address 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 HISTORY: HISTORY: 564.1-IRRITABLE BOWEL SYNDROME The IBS remains stable. The patient denies abdominal cramping, constipation, or diarrhea. The IBS symptoms began several years ago. 300.00-ANXIETY The condition remains stable. The patient denies excessive crying, a persistent feeling of sadness and hopelessness, and fatigue. on effexor for 3 years. ROS: GENERAL: Normal activity and energy level, no change in appetite. No major weight gain or loss. No malaise, chills, fever, diaphoresis. ALLERGIC/IMMUNOLOGIC: No hay fever or history of environmental allergies. No chronic problems with immunity. EYES: No vision changes or diplopia. ENT: No hearing loss, epistaxis, hoarseness or dysphagia. No sinus congestion. ENDOCRINE: No heat or cold intolerance, no excessive thirst. CARDIAC: No chest pain, palpitations, orthopnea, dyspnea on exertion, or paroxysmal nocturnal dyspnea. RESPIRATORY: No dyspnea, cough, hemoptysis or wheezing. SKIN/BREAST/CHEST: No rashes or non-healing lesions. No breast symptoms noted. HEMATOLOGIC/LYMPHATIC: No anemia, easy bruising, bleeding or swollen nodes. : No frequency, urgency, hematuria or dysuria. GI: No abdominal pain, nausea, vomiting, diarrhea, constipation, melena, or hematochezia. NEUROLOGIC: No weakness, dizziness, loss of consciousness, transient ischemic symptoms, or seizures. MUSCULOSKELETAL: No muscle or joint pain, weakness, swelling or inflammation. No restriction of motion, no atrophy or backache. PSYCHIATRIC: No increased nervousness, mood changes or depression. Coping well. PAST MEDICAL HISTORY: MEDICAL: Depression./Anxiety, IBS SURGICAL: No previous surgery. CURRENT MEDICATIONS: Loestrin 1.5/30 QD Effexor XR 37.5mg QD ALLERGIES/ADVERSE REACTIONS: Codeine derivatives.augmentin FAMILY HISTORY: FATHER: The father is . Illnesses: Hypercholesterolemia, hypertension, depression. occurred at age 49. The cause of was.brain aneurysm MOTHER: The mother is living. Illnesses: Hypercholesterolemia, hypertension.49 SIBLINGS: One sibling. Healthy. SOCIAL HISTORY: MARITAL HISTORY: Single. LIVING WILL: The patient does not have a living will. TOBACCO USE: Has no significant smoking history. 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 ALCOHOL: Drinks alcohol occasionally, on a less than daily basis. CAFFEINE: A minimal amount of caffeinated beverages daily. EXERCISES: The patient exercises once a week. The exercise is predominantly aerobic exercise. DIET: Follows no specific diet. SAFETY ISSUES: Uses seat belts. ILLICIT DRUG USE: Denies illicit drug use. PHYSICAL EXAMINATION: CONSTITUTIONAL: GENERAL APPEARANCE: Healthy appearing patient in no distress. EYES: PUPILS: Pupils equal and reactive. EARS, NOSE, MOUTH AND THROAT: NOSE (AND SINUS): ORAL: Inspection of gums, lips, palate, and teeth normal. No scars, lesions, or masses. Oral mucosaunremarkable with non-inflamed posterior pharynx. NECK/THYROID: Trachea midline. No thyroid enlargement, tenderness, or mass. No supraclavicular or cervical adenopathy. RESPIRATORY: Clear to auscultation and percussion. Normal respiratory effort. CARDIOVASCULAR: CARDIAC: Regular rhythm. No murmurs, rubs, or gallops. EDEMA/VARICOSITIES OF EXTREMITIES: No edema. LYMPHATICS: No lymphadenopathy in the neck, axillae, or groin. GASTROINTESTINAL: ABDOMEN: Soft, non-tender, without masses. Bowel sounds active. LIVER/SPLEEN/KIDNEY: No hepatosplenomegaly, tenderness or nodularity. Kidneys not palpable. MUSCULOSKELETAL EXAM: GAIT/STATION: Normal gait. EXTREMITIES: PE/MS/BILAT UPPER EXT No misalignment or tenderness. Full range of motion. Normal stability, strength and tone. BILATERAL LOWER EXTREMITIES: Normal strength and tone. SKIN: SKIN: Warm, dry, no diaphoresis, no significant lesions, irritation, rashes or ulcers. No induration, obvious subcutaneous nodules or tightening. 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 DEEP TENDON REFLEXES: Deep tendon reflexes 2+/4 and symmetrical. PSYCHIATRIC: Judgment appropriate. Oriented. Normal memory. Mood and affect appropriate. ASSESSMENT/PLAN: 564.1-IRRITABLE BOWEL SYNDROME ASSESSMENT: The patient's irritable bowel syndrome continues to remain stable. Will not change medication, continue to monitor for complications. 300.00-ANXIETY ASSESSMENT: The patient's anxiety remains stable. Will not change medication, continue to monitor for complications. MEDICATIONS: EFFEXOR XR ORAL CAPSULE 24 HR 37.5 MG, 1 Every Day, 90 Dispensed, 3 Fills, status: CONTINUED, 05/03/2006. V17.2-FAMILY HISTORY NEUROLOGICAL DISEASES father passed from brain aneurysm at 49, we discussed the need to have screening brain MRI in her 40s to assess for inherited forms of aneurysm. HEALTH MAINTENANCE: LAST BREAST EXAM DATE: 04/13. PAP SMEAR PROVIDER: Rosie. LAST PAP DATE: 04/13. LAST DATE PELVIC EXAM: 04/13. DISCUSSED SMOKING: neg. LAST TD: 2001 SUBSTANCE ABUSE DISCUSSED: neg. DIET AND EXERCISE DISCUSSED: 04/13. PREVENTIVE COUNSELING The patient was counseled regarding regular self- examination of the breasts on a monthly basis, diet, regular sustained exercise for at least 30 minutes 3-4 times per week, importance of regular PAP smears, control options for the prevention of an unintended , screening procedures and recommended schedules for mammography, GI hemoccult testing, colonoscopy,cholesterol, thyroid and diabetes screening, tobacco use. RETURN VISIT : Patient is to return on an as needed basis.and yearly. Electronically Signed by: Eloisa Leija MD on Wednesday, May 03, 2006 documented in this encounter Plan of Treatment Not on file documented as of this encounter Visit Diagnoses Not on filedocumented in this encounter Care Teams Wan Support Specialist Relationship Specialty Start Date End Date Greald Allen MD PCP - General Family Practice 03/05/20 documented as of this encounter
--- OUTSIDE RECORDS SUMMARY | 2025-02-13 14:52 | XMS_ITS | Clinical Summary ---
Author Organization [facility] Address [address] [facility] [place] [address] Care Team Providers Care Ordnance Artificer Name Role Phone Melony Murry NP Primary Care Provider [phone] Allergies No known active allergies Medications losartan [...] (03/28/2020): Added automatically from request for surgery [id number] Encounters Date Type Department Care Team Description 02/09/2025 Results Follow-Up [facility] at [address] [address] Irish Padilla NP Throat culture Throat 02/08/2025 11:14 AM CDT - 02/08/2025 11:59 PM CDT Hospital Encounter [address] [address] Acute sore throat Discharge Disposition: Discharge to home or self care 02/08/2025 11:00 AM CDT Office Visit [facility] at [address] [address] Sabas Bowman NP Exposure to strep throat (Primary Dx); Acute sore throat; Elevated blood pressure reading in office with diagnosis of hypertension 01/04/2025 1:45 PM CDT Office Visit [facility] Obstetrics and Gynecology [address] [facility] 1st [address] [place] [address] Taylor Gilbert MD PMDD (premenstrual dysphoric disorder) [...] CDT Gender Identity Female 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 Comment:Testing performed by : [facility], [address] [facility], [place] [address] Throat 02/08/2025 11:1 5 AM CDT 02/08/2025 5:49 PM CDT Narrative [facility] FRANCISCO - 02/09/2025 2:14 PM CDT Testing performed by [facility] Microbiology Laboratory ([phone]). Sabas Bowman NP LAB MICROBIOLOGY - [facility] JEFFRY BLACK Final Result EMMANUELLE [address] Department [place] [address] * POCT rapid strep A (02/08/2025 11:09 AM CDT) Rapid Strep A, POC Negative Negative Swab [...] consistent with bilateral reduction mammoplasty are noted. Self Screening Mammogram IMG MAMMO PROCEDURES Fi nal Result * Pap and High Risk HPV, reflex to Genotyping (01/18/2022 11:44 AM CDT) Clinical indication Comment [facility] - 01 Comment: NEGATIVE FOR INTRAEPITHELIAL LESION OR MALIGNANCY. THIS SPECIMEN WAS RESCREENED PART OF OUR FINANCE VICE PRESIDENT PROGRAM. Specimen adequacy: Comment [facility] - 01 Comment: Satisfactory for evaluation. No endocervical component is identified. The absence of an endocervical component was confirmed by an additional screening evaluation. Clinician provided ICD10 Comment LAB ALON 02 Comment:Z01.419 Performed by Comment [facility] - 01 Comment:Debra Garcia, Cytotech nologist ([facility]) QC reviewed by Comment [facility] - 01 Comment:He Wooten, Cyto technologist ([facility]) . . [facility] - 01 Note: Comment [...] 01/22/2022 5:08 PM CDT Performed at: [facility] [address] [place] [id number] Title Coordinator: Suman Moore MD, Phone: [phone] Performed at: - [address] [id number] Title Coordinator: Shavon Manning MD, Phone: [phone] Performed at: 03 - [address] [id number] Title Coordinator: Shavon Manning MD, Phone: [phone] Specimen Comment: Source.............Cervix;Endocervix Specimen Comment: No. of containers..01 ThinPrep Vial Merna Becker NP LAB CYTOLOGY ORDERABLES Final Re sult [facility] - 01 LAB ALON 02 LAB ALON 03 from Last 3 Months or Most Recently Relevant to Health Maintenance Insurance [facility] [employer] [facility] [employer]/PPO Address: [place] [address] [facility] [employer] H[employer]/PPO Address: [address] [address] [place] [address] [facility] [employer] [facility] [employer] [facility] H[employer]/PPO Address: [facility] [id number] [place], [place] [id number] Care Teams Ordnance Artificer Relationship Specialty Start Date End Date Melony Murry NP [facility] [place] [address] PCP - General Nurse Practitioner 02/08/25
--- OUTSIDE RECORDS SUMMARY | 2025-02-13 14:52 | XMS_ITS | Encounter Summary ---
Author Organization [employer] Address [address] [place] [address] Care Team Providers Care Validation Manager Name Role Phone Gerald Allen MD Primary Care Provider [phone] Encounter Details Date Type Department Care Team (Late st Contact Info) Description 06/06/2007 Outpatient Historical [facility] [address] 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 Gender Identity Not on file Sexual Orientation Not on file documented as of this encounter Last Filed Vital Signs Vital Sign Reading Time Taken Comments Blood Pressure 106/76 06/06/2007 1:00 PM CDT Pulse - - Temperature - - Respiratory Rate - - Oxygen Saturation - - Inhaled Oxygen Concentration - - Weight 63 kg (139 lb) 06/06/2007 1:00 PM CDT Height - - Body Mass Index 20.53 05/03/2006 1:30 PM CDT documented in this encounter Plan of Treatment Not on file documented as of this encounter Visit Diagnoses Not on filedocumented in this encounter Care Teams Validation Manager Relationship Specialty Start Date End Date Gerald Allen MD PCP - General Family Practice 03/05/20 documented as of this encounter
--- OUTSIDE RECORDS SUMMARY | 2025-02-13 14:52 | XMS_ITS | Encounter Summary ---
Author Organization [employer] Address [address] [place] [address] Care Team Providers Care Mail Handler Equipment Operator Name Role Phone Gerald Allen MD Primary Care Provider [phone] Encounter Details Date Type Department Care Team (Late st Contact Info) Description 05/03/2006 Outpatient Historical [facility] Internal Medicine [address] [facility] [address] [place] [address] Eloisa Leija MD NO ADDRESS ON FILE Social History Tobacco Use Types Packs/Day Years Used Date Smoking Tobacco: Never Assessed Comments Unknown Sex and Gender Information Value Date Recorded Sex Assigned at Not on file 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 Gender Identity Not on file Sexual Orientation Not on file documented as of this encounter Last Filed Vital Signs Vital Sign Reading Time Taken Comments Blood Pressure 126/70 05/03/2006 1:30 PM CDT Pulse - - Temperature - - Respiratory Rate - - Oxygen Saturation - - Inhaled Oxygen Concentration - - Weight 60.3 kg (133 lb) 05/03/2006 1:30 PM CDT Height 175.3 cm (5' 9) 05/03/2006 1:30 PM CDT Body Mass Index 19.64 05/03/2006 1:30 PM CDT documented in this encounter Plan of Treatment Not on file documented as of this encounter Visit Diagnoses Not on filedocumented in this encounter Care Teams Mail Handler Equipment Operator Relationship Specialty Start Date End Date Gerald Allen MD PCP - General Family Practice 03/05/20 documented as of this encounter
--- OUTSIDE RECORDS SUMMARY | 2025-02-13 14:52 | XMS_ITS | Encounter Summary ---
Author Organization [employer] Address 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
--- OUTSIDE RECORDS SUMMARY | 2025-02-13 14:52 | XMS_ITS | Data Portability ---
Author Organization [facility] [employer], Main Office Address [address] [place] [address] Assessment No assessment recorded. Plan of Treatment Reminders Order Date Submit Date Provider Last Modified By Organization Details Last Modified Time Details Appointments None recorded. Lab culture, urine 2022 023 [facility] ([facility] [address] [place], [address], 3 07:57:46 urinalysis, dipstick 2022 023 [email or web address] 3 [facility] [address], [place], [address], 3 10:14:55 magnesium, serum or plasma 2022 023 [email or web address] [facility], [address] [place] [address], [address], 3 09:08:52 vitamin D, 25-hydroxy, total, serum 2022 023 [facility], [address] [place] [address], [address], 3 09:08:51 TSH, ultra-sensi tive, serum 2022 023 [facility], [address] [place] [address], [address], 09:08:51 lipid panel, serum 2022 023 [email or web address] [facility], [address] [place] [address] 2, [place], [address], 09:08:51 CMP, serum or plasma 2022 023 [email or web address] [facility], [address] [place] [address] 2, [place], [address], 09:08:51 Referral None recorded. Procedures None recorded. Surgeries None recorded. Imaging None recorded. Medication Orders ciprofloxac in 500 mg tablet 2022 [email or web address] 3 [id number], [address], [place], [id number], 13:17:08 losartan 50 mg tablet 2022 [facility], [address] [place] [address], [address], 17:07:15 venlafaxine ER 150 mg capsule,ext ended release 24 hr 2022 [facility], [address] [place] [address], [address], 17:07:15 Patient TargetsNo targets recorded. Patient InstructionsNo instructions recorded. Reason for Referral None Reported. Results Created Date Observation Date Name Description Value Unit Range Abnormal Flag Note LastModifiedBy Organization Detail LastModifiedTime 03/01/20 22 03/01/2022 hemog lobin A1C, finge rstic k HgbA1C 5.6 Not Available [facility] [address] , [facility] [address], [place], [address], 03/01/2022 15:32:34 05/30/20 23 05/30/2023 urina lysis , dipst ick Leukocytes (reference range: negative jose ramon/ l) Large Not Available [address], [place], [address], 05/30/2023 10:12:13 05/30/2005/30/2023 urina lysis , dipst ick Nitrite (reference rage: negative mg/dl) negati ve Not Available [address], [place], [address], 05/30/2023 10:12:13 05/30/2005/30/2023 urina lysis , dipst ick Urobilinogen (reference range: 0.2-1 mg/dl) 1 Not Available [address], [place], [address], 05/30/2023 10:12:13 05/30/2005/30/2023 urina lysis , dipst ick Protein (reference range: negative mg/dl) Modera te Not Available [address], [place], [address], 05/30/2023 10:12:13 05/30/2005/30/2023 urina lysis , dipst ick pH (reference range: 5-7) 6.5 Not Available [address], [place], [address], 05/30/2023 10:12:13 05/30/2005/30/2023 urina lysis , dipst ick Blood (reference range: negative Eliecer/ l) Large Not Available [address], [place], [address], 05/30/2023 10:12:13 05/30/2005/30/2023 urina lysis , dipst ick Specific Phoenix (reference range: 1.005-1.030) 1.030 Not Available [address], [place], [address], 05/30/2023 10:12:13 05/30/2005/30/2023 urina lysis , dipst ick Ketone (reference range: negative mg/dl) Trace Not Available [address], [place], [address], 05/30/2023 10:12:13 05/30/2005/30/2023 urina lysis , dipst ick Bilirubin (reference range: negative mg/dl) Small Not Available [address], [place], [address], 05/30/2023 10:12:13 05/30/2005/30/2023 urina lysis , dipst ick Glucose (reference range: negative mg/dl) Negati ve Not Available [address], [place], [address], 05/30/2023 10:12:13 05/30/2005/30/2023 urina lysis , dipst ick Appearance Cloudy Not Available [address], [place], [address], 05/30/2023 10:12:13 05/30/2005/30/2023 urina lysis , dipst ick Color Brown Not Available [address], [place], [address], 05/30/2023 10:12:13 09/17/19 24 09/18/2023 CBC WITH DIFFE RENTI AL/PL ATELE T WBC 5.3 x10e3 /uL 3.4-10 .8 Not Available [facility] ([facility]) [address] [facility], [place], [address], 09/18/2023 08:10:23 09/17/19 24 09/18/2023 CBC WITH DIFFE RENTI AL/PL ATELE T RBC 4.63 x10e6 /uL 3.77-5 .28 Not Available [facility] ([facility]) [address] [facility], [place], [address], 09/18/2023 08:10:23 09/17/19 24 09/18/2023 CBC WITH DIFFE RENTI AL/PL ATELE T hemoglobin 13.4 g/dL 11.1-1 5.9 Not Available [facility] ([facility]) [address] [facility], [place], [address], 09/18/2023 08:10:23 09/17/19 24 09/18/2023 CBC WITH DIFFE RENTI AL/PL ATELE T hematocrit 40.6 % 34.0-4 6.6 Not Available [facility] ([facility]) [address] [place], [address], 09/18/2023 08:10:23 09/17/19 24 09/18/2023 CBC WITH DIFFE RENTI AL/PL ATELE T MCV 88 fL 79-97 Not Available [facility] ([facility]) [address] [place], [address], 09/18/2023 08:10:23 09/17/19 24 09/18/2023 CBC WITH DIFFE RENTI AL/PL ATELE T MCH 28.9 pg 26.6-3 3.0 Not Available [facility] ([facility]) [address] [facility], [place], [address], 09/18/2023 08:10:23 09/17/19 24 09/18/2023 CBC WITH DIFFE RENTI AL/PL ATELE T MCHC 33.0 g/dL 31.5-3 5.7 Not Available [facility] ([facility]) [address] [facility], [place], [address], 09/18/2023 08:10:23 09/17/19 24 09/18/2023 CBC WITH DIFFE RENTI AL/PL ATELE T RDW 12.3 % 11.7-1 5.4 Not Available [facility] ([facility]) [address] [facility], [place], [address], 09/18/2023 08:10:23 09/17/19 24 09/18/2023 CBC WITH DIFFE RENTI AL/PL ATELE T platelets 377 x10e3 /uL 150-45 0 Not Available [facility] ([facility]) [address] [facility], [place], [address], 09/18/2023 08:10:23 09/17/19 24 09/18/2023 CBC WITH DIFFE RENTI AL/PL ATELE T neutrophils 46 % not estab. Not Available [facility] ([facility]) [address] [facility], [place], [address], 09/18/2023 08:10:23 09/17/19 24 09/18/2023 CBC WITH DIFFE RENTI AL/PL ATELE T lymphs 47 % not estab. Not Available [facility] ([facility]) [address] [facility], [place], [address], 09/18/2023 08:10:23 09/17/19 24 09/18/2023 CBC WITH DIFFE RENTI AL/PL ATELE T monocytes 7 % not estab. Not Available [facility] ([facility]) [address] [facility], [place], [address], 09/18/2023 08:10:23 09/17/19 24 09/18/2023 CBC WITH DIFFE RENTI AL/PL ATELE T eos 0 % not estab. Not Available [facility] ([facility]) [address] [facility], [place], [address], 09/18/2023 08:10:23 09/17/19 24 09/18/2023 CBC WITH DIFFE RENTI AL/PL ATELE T basos 0 % not estab. Not Available [facility] ([facility]) [address] [facility], [place], [address], 09/18/2023 08:10:23 09/17/19 24 09/18/2023 CBC WITH DIFFE RENTI AL/PL ATELE T immature cells GENERAL PASSENGER AGENT Not Available [facility] ([facility]) [address] [place], [address], 09/18/2023 08:10:23 09/17/19 24 09/18/2023 CBC WITH DIFFE RENTI AL/PL ATELE T neutrophils (absolute) 2.4 x10e3 /uL 1.4-7. 0 Not Available [facility] ([facility]) [address] [place], [address], 09/18/2023 08:10:23 09/17/19 24 09/18/2023 CBC WITH DIFFE RENTI AL/PL ATELE T lymphs (absolute) 2.4 x10e3 /uL 0.7-3. 1 Not Available [facility] ([facility]) [address] [place], [address], 09/18/2023 08:10:23 09/17/19 24 09/18/2023 CBC WITH DIFFE RENTI AL/PL ATELE T monocytes(ab solute) 0.4 x10e3 /uL 0.1-0. 9 Not Available [facility] ([facility]) [address] [place], [address], 09/18/2023 08:10:23 09/17/19 24 09/18/2023 CBC WITH DIFFE RENTI AL/PL ATELE T eos (absolute) 0.0 x10e3 /uL 0.0-0. 4 Not Available [facility] ([facility]) [address] [place], [address], 09/18/2023 08:10:23 09/17/19 24 09/18/2023 CBC WITH DIFFE RENTI AL/PL ATELE T baso (absolute) 0.0 x10e3 /uL 0.0-0. 2 Not Available [facility] ([facility]) [address] [facility], [place], [address], 09/18/2023 08:10:23 09/17/19 24 09/18/2023 CBC WITH DIFFE RENTI AL/PL ATELE T immature granulocytes 0 % not estab. Not Available [facility] ([facility]) [address] [facility], [place], [address], 09/18/2023 08:10:23 09/17/19 24 09/18/2023 CBC WITH DIFFE RENTI AL/PL ATELE T immature grans (abs) 0.0 x10e3 /uL 0.0-0. 1 Not Available [facility] ([facility]) [address] [facility], [place], [address], 09/18/2023 08:10:23 09/17/19 24 09/18/2023 CBC WITH DIFFE RENTI AL/PL ATELE T NRBC GENERAL PASSENGER AGENT Not Available [facility] ([facility]) [address] [facility], [place], [address], 09/18/2023 08:10:23 09/17/19 24 09/18/2023 CBC WITH DIFFE RENTI AL/PL ATELE T hematology comments: GENERAL PASSENGER AGENT Not Available [facility] ([facility]) [address] [facility], [place], [address], 09/18/2023 08:10:23 09/17/19 24 09/18/2023 COMP. METAB OLIC PANEL (14) glucose 80 mg/dL 70-99 Not Available [facility] ([facility]) [address] [facility], [place], [address], 09/18/2023 10:35:44 09/17/19 24 09/18/2023 COMP. METAB OLIC PANEL (14) BUN 8 mg/dL 6-24 Not Available [facility] ([facility]) [address] [facility], [place], [address], 09/18/2023 10:35:44 09/17/19 24 09/18/2023 COMP. METAB OLIC PANEL (14) creatinine 0.71 mg/dL 0.57-1 .00 Not Available [facility] ([facility]) [address] [facility], [place], [address], 09/18/2023 10:35:44 09/17/19 24 09/18/2023 COMP. METAB OLIC PANEL (14) eGFR 109 mL/mi n/1.7 3 >59 Not Available [facility] ([facility]) [address] [facility], [place], [address], 09/18/2023 10:35:44 09/17/19 24 09/18/2023 COMP. METAB OLIC PANEL (14) BUN/creatini ne ratio 11 9-23 Not Available [facility] ([facility]) [address] [facility], [place], [address], 09/18/2023 10:35:44 09/17/19 24 09/18/2023 COMP. METAB OLIC PANEL (14) sodium 139 mmol/ L 134-14 4 Not Available [facility] ([facility]) [address] [place], [address], 09/18/2023 10:35:44 09/17/19 24 09/18/2023 COMP. METAB OLIC PANEL (14) potassium 4.0 mmol/ L 3.5-5. 2 Not Available [facility] ([facility]) [address] [facility], [place], [address], 09/18/2023 10:35:44 09/17/19 24 09/18/2023 COMP. METAB OLIC PANEL (14) chloride 101 mmol/ L 96-106 Not Available [facility] ([facility]) [address] [facility], [place], [address], 09/18/2023 10:35:44 09/17/19 24 09/18/2023 COMP. METAB OLIC PANEL (14) carbon dioxide, total 24 mmol/ L 20-29 Not Available [facility] ([facility]) [address] [facility], [place], [address], 09/18/2023 10:35:44 09/17/19 24 09/18/2023 COMP. METAB OLIC PANEL (14) calcium 9.3 mg/dL 8.7-10 .2 Not Available [facility] ([facility]) [address] [facility], [place], [address], 09/18/2023 10:35:44 09/17/19 24 09/18/2023 COMP. METAB OLIC PANEL (14) protein, total 6.3 g/dL 6.0-8. 5 Not Available [facility] ([facility]) [address] [facility] [place] [place], [address], 09/18/2023 10:35:44 09/17/19 24 09/18/2023 COMP. METAB OLIC PANEL (14) albumin 4.2 g/dL 3.9-4. 9 Not Available [facility] ([facility]) [address] [facility] [place] [place], [address], 09/18/2023 10:35:44 09/17/19 24 09/18/2023 COMP. METAB OLIC PANEL (14) globulin, total 2.1 g/dL 1.5-4. 5 Not Available [facility] ([facility]) [address] [facility] [place] [place], [address], 09/18/2023 10:35:44 09/17/19 24 09/18/2023 COMP. METAB OLIC PANEL (14) A/G ratio 2.0 1.2-2. 2 Not Available [facility] ([facility]) [address] [facility], [place], [address], 09/18/2023 10:35:44 09/17/19 24 09/18/2023 COMP. METAB OLIC PANEL (14) bilirubin, total 0.3 mg/dL 0.0-1. 2 Not Available [facility] ([facility]) [address] [facility], [place], [address], 09/18/2023 10:35:44 09/17/19 24 09/18/2023 COMP. METAB OLIC PANEL (14) alkaline phosphatase 59 IU/L 44-121 Not Available [facility]) [address] [facility], [place], [address], 09/18/2023 10:35:44 09/17/19 24 09/18/2023 COMP. METAB OLIC PANEL (14) AST (SGOT) 12 IU/L 0-40 Not Available [facility] ([facility]) [address] [facility], [place], [address], 09/18/2023 10:35:44 09/17/19 24 09/18/2023 COMP. METAB OLIC PANEL (14) ALT (SGPT) 7 IU/L 0-32 Not Available [facility] ([facility]) [address] [facility], [place], [address], 09/18/2023 10:35:44 09/17/19 24 09/18/2023 LIPID PANEL cholesterol, total 175 mg/dL 100-19 9 Not Available [facility] ([facility]) [address] [facility], [place], [address], 09/18/2023 10:35:46 09/17/19 24 09/18/2023 LIPID PANEL triglyceride s 74 mg/dL 0-149 Not Available [facility] ([facility]) [address] [facility], [place], [address], 09/18/2023 10:35:46 09/17/19 24 09/18/2023 LIPID PANEL HDL cholesterol 49 mg/dL >39 Not Available [facility]) [address] [facility], [place], [address], 09/18/2023 10:35:46 09/17/19 24 09/18/2023 LIPID PANEL VLDL cholesterol adam 14 mg/dL 5-40 Not Available [facility] ([facility]) [address] [place], [address], 09/18/2023 10:35:46 09/17/19 24 09/18/2023 LIPID PANEL LDL chol calc ([facility]) 112 mg/dL 0-99 above high normal Not Available [facility] ([facility]) [address] [facility], [place], [address], 09/18/2023 10:35:46 09/17/19 24 09/18/2023 LIPID PANEL comment: GENERAL PASSENGER AGENT Not Available [facility] ([facility]) [address] [facility], [place], [address], 09/18/2023 10:35:46 09/17/19 24 09/18/2023 VITAM IN D, 25-HY DROXY vitamin D, 25-hydroxy 43.1 NG/mL 30.0-1 00.0 Vitam in D defic iency has been defin ed by the Insti tute of Medic ine and an Endoc rine Socie ty pract ice guide line as a level of serum 25-OH vitam in D less than 20 ng/mL (1,2) . The Endoc rine Socie ty went on to furth er defin e vitam in D insuf ficie ncy as a level betwe en 21 and 29 ng/mL (2). 1. IOM (Inst itute of Medic ine). 2009. Dieta ry refer ence intak es for calci um and D. Randall tate [place]: The [facility] Press . 2. Efrem juan [place], Jenny hung [place], Enedelia off-F errar i RAIN, et al. Evalu ation , treat ment, and preve ntion of vitam in D defic iency : an Endoc rine Socie ty clini adam pract ice guide line. JCEM. 2010; 96(7) :1911 -30. Not Available [facility] ([facility]) [address] [facility], [place], [address], 09/18/2023 10:35:47 09/17/19 24 09/18/2023 TSH RFX ON ABNOR MAL TO FREE T4 TSH 1.760 uIU/m L 0.450- 4.500 Not Available [facility] ([facility]) [address] [facility], [place], [address], 09/18/2023 10:35:48 09/17/19 24 09/18/2023 MAGNE SIUM magnesium 2.0 mg/dL 1.6-2. 3 Not Available [facility] ([facility]) [address] [facility], [place], [address], 09/18/2023 10:35:48 Result Notes None recorded. Problems Name Problem SNOMED Code Status Onset Date Resolution Date Notes Provider Name and Address Organization Details Recorded Time History of depression 054214135 Active 2018 Not Available [facility] 3 21:13:05 Hypertensive disorder 17102793 Active 2018 Not Available [facility] 3 21:13:05 Anxiety 90525469 Active 2018 Not Available [facility] 3 21:13:05 Hyperlipidemi a 69062724 Active 2022 Gerald Allen MD [address], [facility] [address], [place], [address] , [employer] [facility] [employer] 3 16:56:00 Vitamin D deficiency 80795052 Active 2022 Gerald Allen MD [address], [address], [place], [address] , [facility] [employer] 3 16:56:45 Essential hypertension 98727950 Active 2022 Gerald Allen MD [address] [facility], [address], [place], [address] , [facility] 3 17:04:21 Mixed anxiety and depressive disorder 387222705 Active 2022 Gerald Allen MD [address] [facility], [address], [place], [address] , [facility] 3 17:05:27 Dysuria 45172039 Active 2022 Eloisa Thorpe , [facility] null, [facility] 3 10:14:17 Problem Notes None recorded. Procedures Surgical History Date Name Laterality Status Provider Name and Address Organization Details Recorded Time dilation and curettage completed Not Available [facility] 10/06/2022 21:12:31 Appendectomy completed Not Available [facility] 10/06/2022 21:12:31 procedure on urinary bladder completed Not Available [facility] 10/06/2022 21:12:31 Imaging Results None recorded. Procedure Notes None recorded. Medical Equipment None Reported. Allergies Allergen ID Allergen Name Allergen Category Reaction Reaction Severity Criticality Documentation Date Start Date Code Code System Note Provider Name and Address Organization Details Recorded Time 58546 phentermi ne medicatio n Not available Not available Not available 10/06/2022 8152 RxNorm Not Available [facility] 3 21:14:14 56805 codeine medicatio n Not available Not available Not available 10/06/2022 2670 RxNorm Not Available [facility] 3 21:14:14 Medications Name Sig Start Date Stop Date Status Note LastModified by Organization Details LastModified Time losartan 50 mg tablet Take 1 tablet every day by oral route. active Not Available Not Available No t Available amoxicillin 500 mg capsule 05/02 completed Not Available Not Available Not Available venlafaxine ER 37.5 mg capsule,ext ended release 24 hr Take 1 capsule every day by oral route. 07/12 completed Not Available Not Available Not Available venlafaxine ER 75 mg capsule,ext ended release 24 hr TAKE ONE CAPSULE BY MOUTH EVERY DAY WITH 150MG CAPSULE 02/03 completed Not Available Not Available Not Available trazodone 50 mg tablet Take 1 tablet every day by oral route at bedtime. active Not Available Not Available No t Available atorvastati n 10 mg tablet TAKE 1 TABLET DAILY 2022 active Not Available Not Available Not Avai lable ondansetron HCl 8 mg tablet TK 1 T PO Q 8 H PRN NV active Not Available Not Available No t Available venlafaxine ER 150 mg capsule,ext ended release 24 hr TAKE 1 CAPSULE BY MOUTH EVERY DAY WITH 75 MG CAPSULE 2022 active Not Available Not Available Not Avai lable phentermine 37.5 mg tablet TAKE 1 TABLET BY MOUTH EVERY DAY active Not Available Not Available No t Available amlodipine 5 mg tablet 05/02 completed Not Available Not Available Not Available ciprofloxac in 500 mg tablet TAKE 1 TABLET BY MOUTH EVERY 12 HOURS active Not Available Not Available No t Available losartan 100 mg-hydrochl orothiazide 25 mg tablet Take 1 tablet every day by oral route. 09/04 completed Not Available Not Available Not Available amlodipine 10 mg tablet 05/02 completed Not Available Not Available Not Available progesteron e micronized 200 mg capsule active Not Available Not Available Not Available hydrochloro thiazide 25 mg tablet TAKE 1 TABLET DAILY 2022 active Not Available Not Available Not Avai lable mupirocin 2 % topical ointment DARRON AA BID active Not Available Not Available No t Available norethindro ne acetate 5 mg tablet TAKE 1 TABLET BY MOUTH DAILY 02/03 completed Not Available Not Available Not Available ergocalcife rol (vitamin D2) 1,250 mcg (50,000 unit) capsule TK 1 C PO Q WK active Not Available Not Available No t Available Lomotil 2.5 mg-0.025 mg tablet Take 1 tablet 4 times a day by oral route as needed. 02/03 completed Not Available Not Available Not Available ondansetron 4 mg disintegrat ing tablet TAKE 1 TABLET BY MOUTH EVERY 6 HOURS NEEDED active Not Available Not Available No t Available losartan 100 mg tablet TAKE 1 TABLET BY MOUTH EVERY DAY active Not Available Not Available No t Available fluoxetine 20 mg capsule TK 1 C PO Q DAY 09/04 completed Not Available Not Available Not Available diazepam 5 mg tablet TK 1 T PO Q 6-8 H PRN MUSCLE SPASMS active Not Available Not Available No t Available aripiprazol e 5 mg tablet Take 1 tablet every day by oral route. active Not Available Not Available No t Available bupropion HCl XL 150 mg 24 hr tablet, extended release TK 1 T PO QD 07/12 completed Not Available Not Available Not Available Wellbutrin XL 300 mg 24 hr tablet, extended release Take 1 tablet every day by oral route. 07/12 completed Not Available Not Available Not Available aripiprazol e 2 mg tablet TAKE 1 TABLET BY MOUTH EVERY DAY 03/29 completed Not Available Not Available Not Available venlafaxine ER 225 mg tablet,exte nded release 24 hr Take 1 tablet every day by oral route. 09/04 completed Not Available Not Available Not Available Viibryd 10 mg tablet TK 1 T PO QD 09/21 completed Not Available Not Available Not Available Saxenda 3 mg/0.5 mL (18 mg/3 mL) subcutaneou s pen injector Inject 0.6 mg first week then 1.2 mg second week then 1.8 mg week 3 2.4 mg week 4 then 3.0 mg theregaye r. 02/22 completed Not Available Not Available Not Available Rexulti 1 mg tablet TAKE 1 TABLET BY MOUTH EVERY DAY active Not Available Not Available No t Available Rexulti 0.5 mg tablet TAKE 1 TABLET BY MOUTH EVERY DAY 08/10 completed Not Available Not Available Not Available Vraylar 1.5 mg capsule Take 1 capsule every day by oral route. active Not Available Not Available No t Available Trintellix 10 mg tablet Take 1 tablet every day by oral route. 10/02 completed Not Available Not Available Not Available Ozempic 0.25 mg or 0.5 mg (2 mg/1.5 mL) subcutaneou s pen injector Inject 0.25 mg every week by subcutane ous route. active Not Available Not Available No t Available Flucelvax Quad 60 mcg (15 mcg x 4)/0.5 mL IM suspension 05/02 completed Not Available Not Available Not Available Mary 24 Fe 1 mg-20 mcg (24)/75 mg (4) tablet TAKE 1 TABLET BY MOUTH DAILY 08/10 completed Not Available Not Available Not Available Fluzone Quad 60 mcg (15 mcg x 4)/0.5 mL intramuscul ar susp. 06/12 completed Not Available Not Available Not Available Fluzone Quad (PF) 60 mcg (15 mcg x 4)/0.5 mL IM syringe [facility] 09/04 completed Not Available Not Available Not Available Vitals Date Recorded Body mass index (BMI) Body height Oxygen saturation Oxygen saturation in Arterial blood by Pulse oximetry Heart rate Body temperature Body weight Systolic And Diastolic Provider Name and Address Organization Details Last Updated DateTime 3 30.4 kg/m2 177.8 cm 97 % 97 % 89 /min 97.3 [degF] 36348.5 8 g 170/124 mm[Hg] Not Available [facility] 3 21:12:47 Date Recorded Body mass index (BMI) Body height Oxygen saturation Oxygen saturation in Arterial blood by Pulse oximetry Heart rate Body temperature Body weight Systolic And Diastolic Provider Name and Address Organization Details Last Updated DateTime 2 28.1 kg/m2 177.8 cm 98 % 98 % 74 /min 97.3 [degF] 55902.1 g 170/100 mm[Hg] Not Available [facility] 3 21:12:47 Date Recorded Body mass index (BMI) Body height Oxygen saturation Oxygen saturation in Arterial blood by Pulse oximetry Heart rate Body temperature Body weight Systolic And Diastolic Provider Name and Address Organization Details Last Updated DateTime 2 28.8 kg/m2 177.8 cm 98 % 98 % 78 /min 96.6 [degF] 90695.0 7 g 140/80 mm[Hg] Not Available [facility] 3 21:12:47 Date Recorded Body height Body mass index (BMI) Body weight Body temperature Heart rate Oxygen saturation Oxygen saturation in Arterial blood by Pulse oximetry Systolic And Diastolic Provider Name and Address Organization Details Last Updated DateTime 3 177.8 cm 22.8 kg/m2 68950.1 9 g 97.3 [degF] 73 /min 98 % 98 % 122/74 mm[Hg] YULIANA Kidd [facility] 3 16:43:10 Date Recorded Body height Provider Name an d Address Organization Details Last Updated DateTime 05/30/2023 177.8 cm YULIANA CruzS [facility] 05/30/2023 10:11:48 Social History Question Answer Notes LastModified by [employer] Details LastModified Time Tobacco Smoking Status Never Smoker Not Available [employer] 10/06/2022 21:12:25 In The 14 Days Before Symptom Onset, Have You Had Close Contact With A Laboratory-confirm ed COVID-19 While That Case Was Ill? No [id number] Information not available 10/06/2022 In The 14 Days Before Symptom Onset, Have You Had Close Contact With A Person Who Is Under Investigation For COVID-19 While That Person Was Ill? No [id number] Information not available 10/06/2022 Sex: Unknown Functional Status Question Answer Note LastModified by Organizat ion Details LastModified Time What is your level of alcohol consumption? Occasional [id number] Information not available 10/06/2022 Mental Status None recorded. Family History Relationship Description Onset Age of this Age Resolved Age Notes LastModified by Organization Details LastModified Time Father Hypertensive disorder [id number] Not available 10/06/2022 21:12:32 Father Aneurysm [id number] Not available 10/06/2022 21:12:32 Mother Hypertensive disorder [id number] Not available 10/06/2022 21:12:32 Mother Hypercholest erolemia [id number] [id number] Not available 10/06/2022 21:12:32 Brother Leukemia [id number] Not available 10/06/2022 21:12:32 Paternal Grandfather Diabetes mellitus [id number] Not available 10/06/2022 21:12:32 Paternal Uncle Diabetes mellitus [id number] Not available 10/06/2022 21:12:32 Maternal Grandfather Diabetes mellitus [id number] Not available 10/06/2022 21:12:32 Medical History No medical history recorded. Gynecological HistoryNo gynecological history recorded. Obstetrics History GPAL:G 0 P 0 0 0 0 Past Encounters Encounter ID Performer Location Encounter Start Date Encounter Closed Date Diagnosis/Indication Diagnosis SNOMED-CT Code Diagnosis ICD10 Code Diagnosis Note [id number] Gerald Allen MD [facility] [place] [address] [facility] [place] [address] 10/17/2020 00:00:00 12/24/2020 16:41:12 [id number] Gerald Allen MD [facility] [place] [address] [place] [address] y , [place] [address] 12/31/2020 00:00:00 01/01/2021 05:41:03 [id number] Gerald Allen MD [facility] [place] [address] [place] [address] y , [place] [address] 04/14/2021 00:00:00 04/15/2021 05:47:30 [id number] Gerald Allen MD [facility] [place] [address] [place] [address] y , [place] [address] 02/03/2022 00:00:00 02/03/2022 19:14:21 [id number] Gerald Allen MD [facility] [place] [address] [place] [address] [place] [address] 03/01/2022 00:00:00 03/01/2022 19:27:15 [id number] Gerald Allen MD [facility] [place] [address] [place] [address] y , [place] [address] 03/29/2022 00:00:00 03/29/2022 20:28:02 [id number] Gerald Allen MD [facility] [place] [address] [place] [address] [place] [address] 05/06/2022 00:00:00 05/06/2022 20:30:37 [id number] Gerald Allen MD [facility] [place] [address] [place] [address] [place] [address] 08/10/2022 00:00:00 08/10/2022 20:13:52 [id number] Gerald Allen MD [facility] [place] [address] [place] [address] 05/23/2023 16:32:38 05/23/2023 17:15:28 Adult health examination 454034469 Z00.00 Hyperlipidemia 80249095 E78.5 Thyroid di sorder screening 453591053 Z13.29 Vitamin D deficiency 347 78930 E55.9 Screening for disorder 169845348 Z13.9 Essential hypertension 96602458 I10 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 [id number] Gerald Allen MD [facility] [place]helle [address] [facility] [place] [address] 05/30/2023 09:54:57 05/30/2023 10:24:58 Dysuria 43728139 R30.0 Urinary symptoms 4375820 08 R39.9 Health Concerns Section Related Observation LastModified by Organization Detai ls LastModified Time None Recorded Concern Status LastModified by Organization Details LastModified Time None Recorded Advance Directives Directive None Recorded Payers Insurance Date Sequence Insurance Name Policy Number Policy Cuevas Covered Member ID Cuevas Member ID Guarantor Name 05/30/2023 1 [facility] [id number] Kae Erazo [id number] Kae Erazo Notes Date Note Type Note Provider Name and Address Organization Details Recorded Time 05/23/2023 text/html Here today for adult physical. Has lost 50#s. Is taking compounded mounjaro. Has lost weight. Is doing well. Her BP is a lot better. Taking losartan only 50 mg daily. Gets light headed when stands. Stopped taking lipitor. Wants BW done to check cholesterol and CMP. UTD with mammogram. Gerald Allen MD [address] [facility] [address], [place], [address], [facility] [employer] 05/23/2023 18:38:33 OBGyn Episode No OBEpisode recorded.
--- OUTSIDE RECORDS SUMMARY | 2025-02-13 14:52 | XMS_ITS | Encounter Summary ---
Author Organization [employer] Address [address] [place] [address] Care Team Providers Care Tugboat Captain Name Role Phone Gerald Allen MD Primary Care Provider [phone] Encounter Details Date Type Department Care Team (Late st Contact Info) Description 10/09/2006 Outpatient Historical [facility] Andrea Vides MD [facility] [place] [address] Er, Authorized P NO ADDRESS ON FILE Urinary Tract Infection, Site not Specified (Primary Dx) Social History Tobacco Use Types Packs/Day Years Used Date Smoking Tobacco: Never Assessed Comments Unknown Sex and Gender Information Value Date Recorded Sex Assigned at Not on file Legal Sex Female 2:44 AM INFORMATION SECURITY ENGINEER Gender Identity Not on file Sexual Orientation Not on file documented as of this encounter Plan of Treatment Not on file documented as of this encounter Procedures Procedure Name Priority Date/Time Associated Diagnosis Comments URINALYSIS W/REFLEX MICROSCOPIC Routine 10/09/2006 9:28 AM INFORMATION SECURITY ENGINEER documented in this encounter Results * (ABNORMAL) URINALYSIS (10/09/2006 9:28 AM INFORMATION SECURITY ENGINEER) COLOR UA [place] INTERFACE SYSTEM CLARITY UA Slt. Cloudy(A) Clear INTE RFACE SYSTEM SPECIFIC GRAVITY UA 1.020 1.001 - 1.035 INTERFACE SYSTEM Comment:Verified by repeat a nalysis. PH UA 6.0 5.0 - 8.0 INTERFACE SYSTEM LEUKOCYTE ESTERASE UA 1+(A) Negative INTERFACE SYSTEM NITRITE UA Color Interference Negative INTERFACE SYSTEM PROTEIN UA Confirmed--2+(A ) Negative INTERFACE SYSTEM GLUCOSE UA Color Interference Negative INTERFACE SYSTEM KETONES UA Negative Negative INTERFACE SYSTEM Comment:Verified by repeat a nalysis. UROBILINOGEN UA 12(H) <=1 mg/dL INTE RFACE SYSTEM BILIRUBIN UA Confirmed--Nega tive Negative INTERFACE SYSTEM BLOOD UA 3+(A) Negative INTERFACE SYSTEM RBC UA >100(H) 0 - 4 /HPF INTERFACE SYSTEM 10/09/2006 9:28 AM INFORMATION SECURITY ENGINEER Narrative INTERFACE SYSTEM - 10/09/2006 10:07 AM INFORMATION SECURITY ENGINEER Ordered by an unspecified provider. us Historical Provider URINE ORDERABLES Edited INTERFACE SYSTEM Refer to clinic/hospital department documented in this encounter Visit Diagnoses Diagnosis Urinary tract infection, site not specified- Primary documented in this encounter Care Teams Tugboat Captain Relationship Specialty Start Date End Date Gerald Allen MD PCP - General Family Practice 03/05/20 documented as of this encounter
--- OUTSIDE RECORDS SUMMARY | 2025-02-13 14:53 | XMS_ITS | Clinical Summary ---
Author Organization [facility] Address [address] [place] [address] Care Team Providers Care Ux Design Lead Name Role Phone Unavailable Primary Care Provider Unavailabl e Source Comments [facility],non-owned Affiliates and Associated Physician Practices is amultiple site organization consisting of ambulatory clinics and hospital sitesin [place], [place], [place] and [place]. This disclosure is being madepursuant to the Care Everywhere program and may not contain all information available regarding this patient. Last updated 18.[facility] Allergies Active Allergy Reactions Criticality Noted Date [...] Comments Blood Pressure 138/86 07/31/2019 11:56 AM FIRE HYDRANT OPERATOR Pulse 88 07/31/2019 11:56 AM FIRE HYDRANT OPERATOR Temperature 36.7 C (98 F) 07/31/2019 11:56 AM FIRE HYDRANT OPERATOR Respiratory Rate 18 07/31/2019 11:56 AM FIRE HYDRANT OPERATOR Oxygen Saturation 98% 07/31/2019 11:56 AM FIRE HYDRANT OPERATOR Inhaled Oxygen Concentration - - Weight 81.6 kg (180 lb) 07/31/2019 11:56 AM FIRE HYDRANT OPERATOR Height 177.8 cm (5' 10) 07/31/2019 11:56 AM FIRE HYDRANT OPERATOR Body Mass Index 25.83 07/31/2019 11:56 AM FIRE HYDRANT OPERATOR Plan of Treatment Health Maintenance Due Date [...] REFLEX LDL DIRECT Routine 10/03/2018 10:02 AM FIRE HYDRANT OPERATOR Pure hypercholesterolemia from Last 3 Months or Most Recently Relevant to Health Maintenance Results * (ABNORMAL) LIPID PROFILE REFLEX LDL DIRECT (10/03/2018 10:02 AM FIRE HYDRANT OPERATOR) Cholesterol 213(H) 100 - 199 mg/dL [facility] [...] BLOOD SPECIMEN / Unknown 10/03/2018 10:02 AM FIRE HYDRANT OPERATOR 10/03/2018 Narrative [facility] INSURANCE BILL - 10/04/2018 7:15 AM FIRE HYDRANT OPERATOR A courtesy copy of this report has been sent to the patient. Resulting Agency Comment [facility] [address] [facility] [phone] Oli Tate MD LAB - CHEMISTRY ORDERABLES F inal Result [facility] INSURANCE BILL [id number] [place] [address] from Last 3 Months or Most Recently Relevant to Health Maintenance Insurance ANTHEM ANTHEM
--- OUTSIDE RECORDS SUMMARY | 2025-02-13 14:53 | XMS_ITS | Encounter Summary ---
Author Organization [employer] Address [address] [place] [address] Care Team Providers Care Potato Chip Packaging Machine Operator Name Role Phone Gerald Allen MD Primary Care Provider [phone] Encounter Details Date Type Department Care Team (Late st Contact Info) Description 10/12/2007 Outpatient Historical [facility] [address] [facility] [address] [place] [id number] Eloisa Leija MD NO ADDRESS ON FILE Social History Tobacco Use Types Packs/Day Years Used Date Smoking Tobacco: Never Assessed Comments Unknown Sex and Gender Information Value Date Recorded Sex Assigned at Not on file Legal Sex Female 2:44 AM PRECISION FARMING SPECIALIST Gender Identity Not on file Sexual Orientation Not on file documented as of this encounter Plan of Treatment Not on file documented as of this encounter Visit Diagnoses Not on filedocumented in this encounter Care Teams Potato Chip Packaging Machine Operator Relationship Specialty Start Date End Date Gerald Allen MD PCP - General Family Practice 03/05/20 documented as of this encounter
--- OUTSIDE RECORDS SUMMARY | 2025-02-13 14:53 | XMS_ITS | Encounter Summary ---
Author Organization [employer] Address [address] [place] [address] Care Team Providers Care Supervisor Dyer Name Role Phone Gerald Allen MD Primary Care Provider [phone] Encounter Details Date Type Department Care Team (Late st Contact Info) Description 07/03/2008 Outpatient Historical [facility], [address] Eloisa Leija MD NO ADDRESS ON FILE Screening for Other and Unspecified Deficiency Anemia Social History Tobacco Use Types Packs/Day Years Used Date Smoking Tobacco: Never Comments No Sex and Gender Information Value Date Recorded Sex Assigned at Not on file Legal Sex Female 2:44 AM PROCUREMENT DIRECTOR Gender Identity Not on file Sexual Orientation Not on file 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
--- OUTSIDE RECORDS SUMMARY | 2025-02-13 14:53 | XMS_ITS | Encounter Summary ---
Author Organization [facility] Address [address] [address] Care Team Providers Care Technical Services Librarian Name Role Phone Gerald Allen MD Primary Care Provider [phone] Encounter Details Date Type Department Care Team (Late st Contact Info) Description 10/12/2007 Orders Only [facility] Internal Medicine [address] [phone] Eloisa Leija MD NO ADDRESS ON FILE Social History Tobacco Use Types Packs/Day Years Used Date Smoking Tobacco: Never Assessed Comments Unknown Sex and Gender Information Value Date Recorded Sex Assigned at Not on file Legal Sex Female 2:44 AM PATROL INSPECTOR Gender Identity Not on file Sexual Orientation Not on file documented as of this encounter Progress Notes * Eloisa Leija MD - 01/11/2008 5:43 PM CDT WEIGHT: 138lbs BLOOD PRESSURE: 124/70 Right Arm Sitting NURSE NAME: Alicia Swan J CHIEF COMPLAINT Patient complains of. fluid in ears HISTORY: HISTORY: HISTORY OF PRESENT ILLNESS: UPPER RESPIRATORY: Onset is gradual. The upper respiratory symptoms began approximately 1 week ago.Symptoms include ear popping, symptoms include sinus congestion, symptoms include fever. The symptoms have been worsening. Therapies tried include analgesics, Zithromax, coughing medication. CURRENT ALLERGY LIST: AUGMENTIN CODEINE SOCIAL HISTORY: TOBACCO USE: Has no significant smoking history. 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 PHYSICAL EXAMINATION: CONSTITUTIONAL: GENERAL APPEARANCE: In no acute distress. EARS, NOSE, MOUTH AND THROAT: EARS: RIGHT TYMPANIC MEMBRANE INFLAMED. NOSE (AND SINUS): No nasal discharge noted, turbinates appear normal bilaterally, MAXILLARY SINUSESARE TENDER BILATERALLY. ORAL: No erythema in oropharynx. RESPIRATORY: Clear to auscultation and percussion. Normal respiratory effort. CARDIOVASCULAR: CARDIAC: Regular rhythm. No murmurs, rubs, or gallops. EDEMA/VARICOSITIES OF EXTREMITIES: No edema. LYMPHATICS: No lymphadenopathy in the neck. SKIN: SKIN: Warm, dry, no diaphoresis, no significant lesions, irritation, rashes or ulcers. No induration, obvious subcutaneous nodules or tightening. PSYCHIATRIC: Mood and affect appropriate. ASSESSMENT/PLAN: 461.9-SINUSITIS UNSPECIFIED ASSESSMENT: The patient's acute sinusitis has not changed. Current medication is not effective, will change medication for better control. MEDICATIONS: OMNICEF ORAL CAPSULE CONVENTIONAL 300 MG, 1 Two Times A Day, 20 Dispensed, status: NEW PRESCRIPTION, 10/12/2007. 381.60-NONSUPPURATIVE OTITIS MEDIA AND EUSTACHIAN TUBE DI ASSESSMENT: The patient's acute otitis media has worsened. Will add medication to current regimen for better control. MEDICATIONS: NASONEX NASAL SUSPENSION 50 MCG/ACT, TAKE 2 sprays each nostril daily, 14 Duration/Days Supply, 1 samples given, status: NEW PRESCRIPTION, 10/12/2007. PREVENTIVE COUNSELING The patient was counseled regarding diet, regular sustained exercise for at least 30 minutes 3-4 times per week. RETURN VISIT : Patient instructed to call in a few days if not improving. Electronically Signed by: Eloisa Leija MD on Saturday, October 13, 2007 documented in this encounter Plan of Treatment Not on file documented as of this encounter Visit Diagnoses Not on filedocumented in this encounter Care Teams Technical Services Librarian Relationship Specialty Start Date End Date Gerald Allen MD PCP - General Family Practice 03/05/20 documented as of this encounter
--- OUTSIDE RECORDS SUMMARY | 2025-02-13 14:53 | XMS_ITS | Encounter Summary ---
Author Organization [employer] Address [address] [place] [address] Care Team Providers Care Chauffeur Motorbus Name Role Phone Gerald Allen MD Primary Care Provider [phone] Encounter Details Date Type Department Care Team (Late st Contact Info) Description 05/17/2008 Outpatient Historical [facility] Er, Authorized P NO ADDRESS ON FILE Mark Lin Jr., MD [facility] [place] [address] Social History Tobacco Use Types Packs/Day Years Used Date Smoking Tobacco: Never Assessed Comments Unknown Sex and Gender Information Value Date Recorded Sex Assigned at Not on file Legal Sex Female 2:44 AM STEEL TESTER Gender Identity Not on file Sexual Orientation Not on file documented as of this encounter Plan of Treatment Not on file documented as of this encounter Procedures Procedure Name Priority Date/Time Associated Diagnosis Comments URINALYSIS WITH REFLEX CULTURE Stat 05/17/2008 5:15 PM CDT URINALYSIS W/REFLEX MICROSCOPIC Stat 05/17/2008 5:15 PM CDT URINE CULTURE Stat 05/17/2008 5:15 PM CDT documented in this encounter Results * URINE CULTURE (05/17/2008 5:15 PM CDT) FINAL REPORT 10-50,000 colonies/mL Escherichia coli Normal urethral hira also present. [facility] SUSCEPTIBILITY PERFORMED ON ESCHERICHIA COLI [facility] 05/17/2008 5:15 PM CDT 05/17/2008 7:43 PM CDT Narrative Organism Antibiotic Method Susceptibility Escherichia coli AMPICILLIN JORGE MCG/ML 2: Susceptible Escherichia coli CEFAZOLIN JORGE MCG/ML <=8: Susceptible Escherichia coli AZTREONAM JORGE MCG/ML <=8: Susceptible Escherichia coli LEVOFLOXACIN JORGE MCG/ML <=1: Susceptible Escherichia coli GENTAMICIN JORGE MCG/ML <=0.5: Susceptible Escherichia coli TRIMETHOPRIM/ SULFAMETHOXAZOLE JORGE MC G/ML <=10: Susceptible Escherichia coli NITROFURANTOIN JORGE MCG/ML <=32: Susceptible us Authorized P Er MICROBIOLOGY - GENERAL ORDERABLE S Final Result INTERFACE SYSTEM Refer to clinic/hospital department [facility] CLIA# [id number] [address] [facility] [place] [address] * (ABNORMAL) URINALYSIS (05/17/2008 5:15 PM CDT) Pathologist [facility] BILIRUBIN UA Negative Negative [facility] PROTEIN UA Trace(A) Negative [facility] EPITHELIAL CELLS, URINE Many /HPF [facility] LEUKOCYTE ESTERASE UA 3+(A) Negative [facility] RBC UA 32(H) 0 - 4 /HPF [facility] SPECIFIC GRAVITY UA 1.016 1.001 - 1.035 [facility] GLUCOSE UA Negative Negative [facility] BLOOD UA 1+(A) Negative [facility] COLOR UA Yellow [facility] NITRITE UA Negative Negative [facility] BACTERIA UA 1+(A) None Seen /HPF [facility] UROBILINOGEN UA <1 <=1 mg/dL [facility] PH UA 5.5 5.0 - 8.0 [facility] WBC UA >100(H) 0 - 5 /HPF [facility] KETONES UA Negative Negative [facility] CLARITY UA Slt. Cloudy(A) Clear [facility] 05/17/2008 5:15 PM CDT 05/17/2008 5:20 PM CDT us Authorized P Er URINE ORDERABLES Final Result Performing Organization Address [facility] Phone Number INTERFACE SYSTEM Refer to clinic/hospital department [facility] CLIA# [id number] [address] [address] * URINALYSIS WITH REFLEX CULTURE (05/17/2008 5:15 PM CDT) URINE CULTURE ORDER Culture ordered [facility] Comment: Criteria for a reflex culture include one or more of the following: Abnormal nitrite, leukocyte esterase, WBCs or RBCs. Lack of qualifying criteria does not exclude the possiblity of a urinary tract infection. Dilute urine, drug interference, etc. may decrease the sensitivity of the criteria analytes. Urine specimen (specimen) 05/17/2008 5:15 PM CDT 05/17/2008 5:20 PM CDT us Authorized P Er URINE ORDERABLES Final Result Performing Organization Address [facility] Phone Number INTERFACE SYSTEM Refer to clinic/hospital department [facility] CLIA# [id number] [address] [place] [address] documented in this encounter Visit Diagnoses Not on filedocumented in this encounter Care Teams Chauffeur Motorbus Relationship Specialty Start Date End Date Gerald Allen MD PCP - General Family Practice 03/05/20 documented as of this encounter
--- OUTSIDE RECORDS SUMMARY | 2025-02-13 14:53 | XMS_ITS | Encounter Summary ---
Author Organization [facility] Address [address] [place] [address] Care Team Providers Care Wage And Salary Administrator Name Role Phone Unavailable Primary Care Provider Unavailabl e Encounter Details Date Type Department Care Team (Late st Contact Info) Description 03/07/2024 Lab Requisition [facility] [address] [place] [id number] Eloisa Collier PA-C [address] [place] [address] Melanocytic nevi of scalp and [...]
--- OUTSIDE RECORDS SUMMARY | 2025-02-13 14:53 | XMS_ITS | Encounter Summary ---
Author Organization [facility] Address [address] [place] [address] Care Team Providers Care Beverage Host Name Role Phone Gerald Allen MD Primary Care Provider [phone] Encounter Details Date Type Department Care Team (Late st Contact Info) Description 06/06/2007 Orders Only [facility] Internal Medicine [address] [address] Eloisa Leija MD NO ADDRESS ON FILE Social History Tobacco Use Types Packs/Day Years Used Date Smoking Tobacco: Never Assessed Comments Unknown Sex and Gender Information Value Date Recorded Sex Assigned at Not on file Legal Sex Female 2:44 AM RESEARCH NEUROPSYCHOLOGIST Gender Identity Not on file Sexual Orientation Not on file documented as of this encounter Progress Notes * Eloisa Leija MD - 12/22/2007 3:04 PM CDT WEIGHT: 139lbs BLOOD PRESSURE: 106/76 Right Arm Sitting NURSE NAME: Niesha Dozier M TOBACCO USE Patient does not currently use tobacco. CHIEF COMPLAINT Patient here for follow up anxiety. HISTORY: HISTORY: 300.00-ANXIETY The condition remains stable. The patient denies excessive crying, a persistent feeling of sadness and hopelessness, and fatigue. doing well on effexor but weight up slightly since last OV. 564.1-IRRITABLE BOWEL SYNDROME The IBS remains stable. It is unclear when the IBS symptoms began. sx controlled with dietary restriction and effexor. CURRENT ALLERGY LIST: AUGMENTIN CODEINE SOCIAL HISTORY: TOBACCO USE: Has no significant smoking history. 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 EXERCISES: The patient exercises often. The exercise is predominantly cardio. PHYSICAL EXAMINATION: CONSTITUTIONAL: GENERAL APPEARANCE: Healthy appearing patient in no distress. RESPIRATORY: Clear to auscultation and percussion. Normal respiratory effort. CARDIOVASCULAR: CARDIAC: Regular rhythm. No murmurs, rubs, or gallops. EDEMA/VARICOSITIES OF EXTREMITIES: No edema. GASTROINTESTINAL: ABDOMEN: Soft, non-tender, without masses. Bowel sounds active. LIVER/SPLEEN/KIDNEY: No hepatosplenomegaly, tenderness or nodularity. Kidneys not palpable. SKIN: SKIN: Warm, dry, no diaphoresis, no significant lesions, irritation, rashes or ulcers. No induration, obvious subcutaneous nodules or tightening. facial acne lesions noted. PSYCHIATRIC: Judgment appropriate. Oriented. Normal memory. Mood and affect appropriate. ASSESSMENT/PLAN: 300.00-ANXIETY ASSESSMENT: Will not change medication, continue to monitor for complications. MEDICATIONS: EFFEXOR XR ORAL CAPSULE 24 HR 37.5 MG, 1 Every Day, 90 Dispensed, 3 Fills, status: CONTINUED, 06/06/2007. 564.1-IRRITABLE BOWEL SYNDROME ASSESSMENT: The patient's irritable bowel syndrome continues to remain stable. 706.1-ACNE(COMEDONE) ASSESSMENT: The patient's acne appears worse. Will start medication for better control. MEDICATIONS: DIFFERIN EXTERNAL GEL(JELLY) 0.1 % GRAMS, APPLY QHS, 45 Dispensed, 1 Fills, status: NEW PRESCRIPTION, 06/06/2007. HEALTH MAINTENANCE: LAST BREAST EXAM DATE: 03/14. LAST PAP DATE: 03/14. LAST DATE PELVIC EXAM: 03/14. PELVIC EXAM PROVIDER: Rosie Torres. DISCUSSED SMOKING: neg. DIET AND EXERCISE DISCUSSED: 05/14. LAST FLU VACCINE:rec PREVENTIVE COUNSELING The patient was counseled regarding diet, regular sustained exercise for at least 30 minutes 3-4 times per week, screening procedures and recommended schedules for mammography, GI hemoccult testing, colonoscopy,cholesterol, thyroid and diabetes screening. RETURN VISIT : Patient instructed to return in 1 year. Electronically Signed by: Eloisa Leija MD on Wednesday, June 06, 2007 documented in this encounter Plan of Treatment Not on file documented as of this encounter Visit Diagnoses Not on filedocumented in this encounter Care Teams Beverage Host Relationship Specialty Start Date End Date Gerald Allen MD PCP - General Family Practice 03/05/20 documented as of this encounter
--- OUTSIDE RECORDS SUMMARY | 2025-02-13 14:53 | XMS_ITS | Encounter Summary ---
Author Organization [employer] Address [address] [place] [address] Care Team Providers Care Internal Control Consultant Name Role Phone Gerald Allen MD Primary Care Provider [phone] Encounter Details Date Type Department Care Team (Latest Contact Info) Description 03/13/2009 Outpatient Historical [facility], Dane L, DO NO ADDRESS ON FILE Unspecified Symptom Associated with Female Genital Organs Social History Tobacco Use Types Packs/Day Years Used Date Smoking Tobacco: Never Comments No Sex and Gender Information Value Date Recorded Sex Assigned at Not on file Legal Sex Female 2:44 AM AUDIO VISUAL COLLECTIONS COORDINATOR Gender Identity Not on file Sexual Orientation Not on file 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
[2025-02-13 19:25] LABS: Hematocrit 44.5 % (37.0-47.0); Hemoglobin 14.6 g/dL (12.0-15.0); Immature Granulocyte Percent A 0.1 % (0-0.5); Lymphocytes Absolute Auto 3.15 K/mm3 (0.9-3.2); Mean Corpuscular HGB Conc 32.8 g/dl (32-36); Mean Corpuscular Hemoglobin 29.1 pg (26-34); Mean Corpuscular Volume 88.6 fl (80-100); Nucleated Red Blood Cells Absolute Auto 0.000 K/mm3 (0.0-0.012); Nucleated Red Blood Cells Perc 0.0 % (0.0-0.2); Platelet Count Result 362 k/mm3 (150-375); Red Blood Count 5.02 M/mm3 (4.2-5.4); White Blood Count 7.7 K/mm3 (4.5-10.0)
[2025-02-13 21:12] LABS: Alanine Aminotransferase 15 U/L (6-35); Albumin Level 4.7 g/dL (3.5-5.1); Alkaline Phosphatase 60 U/L (38-126); Aspartate Amino Transferase 63 U/L (14-36); Bilirubin,Total 0.3 mg/dL (0.2-1.3); Total Protein 7.9 g/dL (6.3-8.2)
== END 2025-02-13 14:50 | disposition home or self-care (01) ==
LOC: ANHBWCLAB 14:50
PROVIDERS: PCP Nurse Practitioner Adult Health; Visit Provider Nurse Practitioner Adult Health
DX: R79.89 Other specified abnormal findings of blood chemistry (principal); R74.8 Abnormal levels of other serum enzymes
CPT/HCPCS: 36415; 80076; 85025

== ENCOUNTER 2025-03-21 08:31 | Outpatient (CLI) | payer OTHER, SELFPAY ==
--- OUTSIDE RECORDS SUMMARY | 2025-03-21 08:39 | XMS_ITS | Clinical Summary ---
Author Organization [facility] Address [address] [facility] [place] [address] Care Team Providers Care Deicer Repairer Name Role Phone Melony Murry NP Primary Care Provider [phone] Allergies No known active allergies Medications losartan [...] Skip placebos 84 tablet 3 5 Active losartan-hydroc hlorothiazide (HYZAAR) 100-25 mg per tablet 5 Active vilazodone (Viibryd) 10 mg tablet Oral 0 Active vilazodone (Viibryd) 20 mg tablet Oral 0 Active vortioxetine (Trintellix) 10 mg tablet Oral 0 Active Active Problems Problem Noted Date Diagnosed Date PMS (premenstrual syndrome) 02/05/2021 Encounter for cosmetic surgery 03/28/2020 Overview (03/28/2020): Added automatically from request for surgery [id number] Encounters Date Type Department Care Team Description 03/12/2025 Results Follow-Up [facility] [place] [address] [place] [address] Shahnaz Guthrie, LEONOR Throat culture Throat 03/10/2025 9:18 PM CDT - 03/10/2025 11:59 PM CDT Hospital Encounter [address] [address] Sore throat Discharge Disposition: Discharge to home or self care 03/10/2025 5:00 PM CDT Office Visit [facility] [place] [address] [place] [address] Shahnaz Guthrie, LEONOR Sore throat (Primary Dx); Suspected COVID-19 virus infection; Acute nasopharyngitis; Pharyngitis due to other organism 02/22/2025 1:46 PM CDT - 02/22/2025 11:59 PM CDT Hospital Encounter [facility] Imaging and Radiology [address] [place] [address] Family history of ischemic heart disease and other diseases of the circulatory system Discharge Disposition: Discharge to home or self care 02/22/2025 1:46 PM CDT - 02/22/2025 11:59 PM CDT Hospital Encounter [facility] Imaging and Radiology [address] [place] [address] Encounter for screening mammogram for malignant neoplasm of breast Discharge Disposition: Discharge to home or self care 02/09/2025 Results Follow-Up [facility] at [address] [address] Irish Padilla NP Throat culture Throat 02/08/2025 11:14 AM CDT - 02/08/2025 11:59 PM CDT Hospital Encounter [address] [address] Acute sore throat Discharge Disposition: Discharge to home or self care 02/08/2025 11:00 AM CDT Office Visit [facility] at [address] [address] Sabas Bowman NP Exposure to strep throat (Primary Dx); Acute sore throat; Elevated blood pressure reading in office with diagnosis of hypertension 01/04/2025 1:45 PM CDT Office Visit [facility] Obstetrics and Gynecology [address] [place] [address] Taylor Gilbert MD PMDD (premenstrual dysphoric disorder) [...] Hyperlipidemia Mother Hypertension Mother Diabetes Paternal Grandfather Breast cancer Neg Hx Ovarian cancer Neg Hx Pancreatic cancer Neg Hx Prostate cancer Neg Hx Relation Name Status Comments Father Maternal Grandfather [...] CDT Gender Identity Female 09/28/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 Sexual Orientation Not on file Obstetrics History [...] Sign Reading Time Taken Comments Blood Pressure 128/78 03/10/2025 4:53 PM CDT Pulse 77 03/10/2025 4:53 PM CDT Temperature 36.4 C (97.5 F) 03/10/2025 4:53 PM CDT Respiratory Rate 16 03/10/2025 4:53 PM CDT Oxygen Saturation 99% 03/10/2025 4:53 PM CDT Inhaled Oxygen Concentration - - Weight 72.6 kg (160 lb) 03/10/2025 4:53 PM CDT Height 177.8 cm (5' 10) 03/10/2025 4:53 PM CDT Body Mass Index 22.96 03/10/2025 4:53 PM CDT Plan of Treatment Health Maintenance Due Date Last Done Comments Hepatitis C Screening 1982 Varicella Vaccines (1 of 2 - 13+ 2-dose series) 1995 Hepatitis B Screening 2000 HPV Vaccines (1 - 3-dose SCDM series) 2009 Cervical Cancer Screening 01/18/2023 01/18/2022, 04/2021 Depression Screening 01/18/2023 01/18/2022, 01/15/20 21 Regular Well Visit/Exam 18-64 01/18/2023 01/18/2022, 01/14/2021 Covid-19 Vaccine ( season) 2024 05/09/2021, 10/01/2020, 09/09/2020 Influenza Vaccine (#1) 2025 , 05/16/2020, 05/16/2019, Additional history exists DTaP/Tdap/Td Vaccine (3 - Td or Tdap) 02/09/2026 02/10/2016, 08/22/2012, 08/08/2001 Breast Cancer Screening-Mammogram 02/22/2026 02/22/2025, 02/14/2024, 08/27/2022, Additional history exists Pneumococcal vaccine <65 Aged Out No longer eligible based on patient's age to complete this topic Procedures Procedure Name Priority Date/Time Associated Diagnosis Comments POC INFLUENZA A/B, COVID-19 ANTIGEN Routine 03/10/2025 5:24 PM CDT Sore throat Suspected COVID-19 virus infection THROAT CULTURE Routine 03/10/2025 5:07 PM CDT Sore throat POCT RAPID STREP Routine 03/10/2025 5:06 PM CDT Sore throat CT HEART CALCIUM Schedule Routine, Read Routine (OP Routine) 02/22/2025 2:45 PM CDT Family history of ischemic heart disease and other diseases of the circulatory system SCREENING MAMMOGRAM BILATERAL W RIVER Schedule Routine, Read Routine (OP Routine) 02/22/2025 2:16 PM CDT Encounter for screening mammogram for malignant neoplasm of breast THROAT CULTURE Routine 02/08/2025 11:15 AM CDT Acute sore throat POCT RAPID STREP Routine 02/08/2025 11:0 9 AM CDT Acute sore throat PAP AND HIGH RISK HPV, REFLEX TO GENOTYPING Routine 01/18/2022 11:44 AM CDT Well woman exam from Last 3 Months or Most Recently Relevant to Health Maintenance Results * POC Influenza A/B, COVID-19 antigen (03/10/2025 5:24 PM CDT) Influenza A Ag, POC Negative Negative [facility] Influenza B Ag, POC Negative Negative [facility] COVID-19 Ag POC Presumptive Negative Presumptive Negative, Invalid [facility] Nasal 03/10/2025 5:24 PM CDT Shahnaz Guthrie NP POINT OF CARE TEST ORDERAB LES Final Result Performing Organization Address City/[facility]/ZIP Co de Phone Number [facility] [address] [place] [address], [facility] * Throat culture Throat (03/10/2025 5:07 PM CDT) Report Final Report: No growth of pathogens. Comment:Testing performed by : [facility], [address] [place]., [address] Throat 03/10/2025 5:07 PM CDT 03/10/2025 11:40 PM CDT Narrative EMMANUELLE Edmond 03/11/2025 6:33 PM CDT Testing performed by [facility] ([phone]). Shahnaz Guthrie NP LAB MICROBIOLOGY - GENERAL ORDERABLES Final Result Performing Organization Address City/[facility]/ZIP Co de Phone Number [facility] [address] [place] [address] * POCT rapid strep A (03/10/2025 5:06 PM CDT) Rapid Strep A, POC Negative Negative Swab 03/10/2025 5:06 PM CDT Shahnaz Guthrie NP POINT OF CARE TEST ORDERAB LES Final Result * CT Coronary Calcium Scoring (02/22/2025 2:45 PM CDT) Anatomical Region Laterality Modality Chest Computed Tomogra phy 02/22/2025 3:10 PM CDT Impressions 02/22/2025 3:10 PM CDT 1. Calcium score of 0 2. Incidental findings: None Electronically signed by: Gato Dotson M.D. Narrative 02/22/2025 3:10 PM CDT EXAMINATION: CT OF THE HEART W/O CONTRAST - CORONARY CALCIUM TECHNIQUE: High-resolution, cardiac-gated Computed Tomography of the heart with attention devoted to the coronary arteries was performed with a 128 slice MDCT Scanner. Coronary calcification was analyzed using a 3D workstation with calcified plaque analysis software. RESULTS: Interpretation of coronary calcification is provided below: Your patient's Agatston Coronary Calcium score is 0. This total Coronary Calcium score of 0 places this patient in the less than 25th percentile for an apparently healthy person of the same age and gender. In general, the lower the percentile rank, the lower the cardiac risk. This percentile rank assumes the absence of symptoms and does not account for risk factors or for the number of calcified vessels. Incidental Findings: None The Calcium Score should be interpreted in the context of several factors: Clinical decision-making requires the Calcium Score to be weighed along with other factors, i.e. the number of calcified vessels, the patient's age, gender, symptoms and risk factors. Normal score for any age is ideally zero. The Calcium Score has greater significance when it is above the 75th percentile of age and sex group, or if calcium is present in 2 or more vessels. A score of zero indicates no coronary artery calcification and this implies the absence of significant angiographic coronary narrowing in 99% of cases. It does not absolutely rule out the presence of soft non-calcified plaque, especially in younger patients and those who smoke heavily. Procedure Note Gato Dotson MD - 02/22/2025 EXAMINATION: CT OF THE HEART W/O CONTRAST - CORONARY CALCIUM TECHNIQUE: High-resolution, cardiac-gated Computed Tomography of the heart with attention devoted to the coronary arteries was performed with a 128 slice MDCT Scanner. Coronary calcification was analyzed using a 3D workstation with calcified plaque analysis software. RESULTS: Interpretation of coronary calcification is provided below: Your patient's Agatston Coronary Calcium score is 0. This total Coronary Calcium score of 0 places this patient in the less than 25th percentile for an apparently healthy person of the same age and gender. In general, the lower the percentile rank, the lower the cardiac risk. This percentile rank assumes the absence of symptoms and does not account for risk factors or for the number of calcified vessels. Incidental Findings: None The Calcium Score should be interpreted in the context of several factors: Clinical decision-making requires the Calcium Score to be weighed along with other factors, i.e. the number of calcified vessels, the patient's age, gender, symptoms and risk factors. Normal score for any age is ideally zero. The Calcium Score has greater significance when it is above the 75th percentile of age and sex group, or if calcium is present in 2 or more vessels. A score of zero indicates no coronary artery calcification and this implies the absence of significant angiographic coronary narrowing in 99% of cases. It does not absolutely rule out the presence of soft non-calcified plaque, especially in younger patients and those who smoke heavily. IMPRESSION: 1. Calcium score of 0 2. Incidental findings: None Electronically signed by: Gato Dotson M.D. Melony Murry NP [facility] [place]ED[place] Final Result * Screening Mammogram Bilateral [place] (02/22/2025 2:16 PM CDT) Anatomical Region Laterality Modality Breast Bilateral Mammography Impressions 02/22/2025 3:12 PM CDT No mammographic evidence of malignancy. OVERALL BI-RADS FINAL ASSESSMENT: 2 - Benign RECOMMENDATION: Recommend bilateral annual screening mammography. Narrative 02/22/2025 3:12 PM CDT EXAMINATION: Screening Mammogram Bilateral [place]: 02/22/2025 COMPARISON: Relevant prior studies available at the time of interpretation were reviewed, including the most recent mammogram on: 02/14/2024. TECHNIQUE: Mammography was performed with 2D and digital breast tomosynthesis (DBT) images. CAD was utilized. BREAST PARENCHYMAL COMPOSITION: The breasts are heterogeneously dense, which may obscure small masses. FINDINGS: Bilateral 1) Post-Surgical Finding: Stable post-surgical changes from prior breast reduction are seen in both breasts. Findings are benign. No suspicious mass, microcalcifications or architectural distortion seen in either breast. Melony Murry NP [facility] [place]ED[place] Final Res ult * Throat culture Throat (02/08/2025 11:15 AM CDT) Report Final Report: No growth of pathogens. Comment:Testing performed by : [facility], [address] [facility], [place]., [address] Throat 02/08/2025 11:1 5 AM CDT 02/08/2025 5:49 PM CDT Narrative EMMANUELLE SINGH - 02/09/2025 2:14 PM CDT Testing performed by [facility] ([phone]). us Sabas Bowman NP LAB MICROBIOLOGY - GENERAL [facility] Final Result EMMANUELLE [address] Department [place] [address] * POCT rapid strep A (02/08/2025 11:09 AM CDT) Rapid Strep A, POC Negative Negative Swab 02/08/2025 11:0 9 AM CDT us Sabas Bowman NP POINT OF CARE TEST ORDERABLES F inal Result * Pap and High Risk HPV, reflex to Genotyping (01/18/2022 11:44 AM CDT) Clinical indication Comment [facility] - 01 Comment: NEGATIVE FOR INTRAEPITHELIAL LESION OR MALIGNANCY. THIS SPECIMEN WAS RESCREENED PART OF OUR TUBE MAKING MACHINE OPERATOR PROGRAM. Specimen adequacy: Comment [facility] - 01 Comment: Satisfactory for evaluation. No endocervical component is identified. The absence of an endocervical component was confirmed by an additional screening evaluation. Clinician provided ICD10 Comment LAB ALON 02 Comment:Z01.419 Performed by Comment [facility] - 01 Comment:Debra Garcia, Cytotech nologist (ASC) QC reviewed by Comment [facility] - 01 Comment:He Wooten, Cyto technologist (ASCP) . . [facility] - 01 Note: Comment [...] 01/22/2022 5:08 PM CDT [facility]formed at: [facility] [address] [place] [id number] Water Filterer Helper: Suman Moore MD, Phone: [phone] Performed at: - [address] [id number] Water Filterer Helper: Shavon Manning MD, Phone: [phone] Performed at: 03 - [address] [id number] Water Filterer Helper: Shavon Manning MD, Phone: [phone] Specimen Comment: Source.............Cervix;Endocervix Specimen Comment: No. of containers..01 ThinPrep Vial Merna Becker NP LAB CYTOLOGY ORDERABLES Final Re sult LABCO [facility] - 01 LAB ALON 02 LAB ALON 03 from Last 3 Months or Most Recently Relevant to Health Maintenance Insurance [facility] CHOICE [facility]US [facility] HMO/PPO Address: [address] [place] [address] CHOICE PLUS [facility] HMO/PPO Address: [address] [place] [address] CHOICE [facility]US [facility] HMO/PPO Address: [address] [place] [address] Care Teams Deicer Repairer Relationship Specialty Start Date End Date Melony Murry NP [address] [place] [address] [place] [address] PCP - General Nurse Practitioner 02/08/25
--- OUTSIDE RECORDS SUMMARY | 2025-03-21 08:39 | XMS_ITS | Encounter Summary ---
Author Organization [email or web address] Address 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 [facility] SUSCEPTIBILITY PERFORMED ON ESCHERICHIA COLI [facility] 05/17/2008 5:15 PM CDT 05/17/2008 7:43 [...] Result INTERFACE SYSTEM Refer to clinic/hospital department [facility] CLIA# [id number] [address] [facility] [place] [address] * (ABNORMAL) URINALYSIS (05/17/2008 5:15 PM CDT) BILIRUBIN UA Negative Negative [facility] PROTEIN UA Trace(A) Negative [facility] EPITHELIAL CELLS, URINE Many /HPF [facility] LEUKOCYTE ESTERASE UA 3+(A) Negative [facility] RBC UA 32(H) 0 - 4 /HPF [facility] SPECIFIC GRAVITY UA 1.016 1.001 - 1.035 [facility] GLUCOSE UA Negative Negative [facility] BLOOD UA 1+(A) Negative [facility] COLOR UA Yellow [facility] NITRITE UA Negative Negative [facility] BACTERIA UA 1+(A) None Seen /HPF [facility] UROBILINOGEN UA <1 <=1 mg/dL [facility] PH UA 5.5 5.0 - 8.0 [facility] WBC UA >100(H) 0 - 5 /HPF [facility] KETONES UA Negative Negative [facility] CLARITY UA Slt. Cloudy(A) Clear [facility] 05/17/2008 5:15 PM CDT 05/17/2008 5:20 PM CDT us Authorized P Er URINE ORDERABLES Final Result Performing Organization Address [facility] Phone Number INTERFACE SYSTEM Refer to clinic/hospital department [facility] CLIA# [id number] [address] [place] [address] * URINALYSIS WITH REFLEX CULTURE (05/17/2008 5:15 PM CDT) URINE CULTURE ORDER Culture ordered [facility] Comment: Criteria for a reflex culture [...] URINE ORDERABLES Final Result Performing Organization Address [facility] Phone Number INTERFACE SYSTEM Refer to clinic/hospital department [facility] CLIA# [id number] [address] [place] [address] documented in this encounter Visit Diagnoses Not on filedocumented in this encounter Care Teams In Classroom Tutor Relationship Specialty Start Date End Date Gerald Allen MD PCP - General Family Practice 03/05/20 documented as of this encounter
--- OUTSIDE RECORDS SUMMARY | 2025-03-21 08:39 | XMS_ITS | Continuity of Care Document ---
Author Organization [facility] Address [address] [place] [address] [place] [address] Phone Care Team Providers Care Salvage Winder Name Role Phone Kwame Chow MD Unavailable Unavailable Allergies, Adverse Reactions, Alerts Substance Reaction Status Criticality codeine Urticaria Active No Information Medications Medication Instructions Dosage Effective Dates (start - stop) Status Comments Effexor XR 150 mg capsule,extended release take 1 capsule by oral route every day 150 MG - Active Procedures Procedure Date OFFICE/OUTPATIENT VISIT, NEW [facility] PREV VISIT, NEW, AGE 18-39 OFFICE/OUTPATIENT VISIT, NEW Advance Directives Directive Yes / No Effective Date File Name No Information Encounters Encounter Description Practice Location Reason(s) For Visit Diagnoses Date Provider Providers Copied on Encounter [facility], [address] [place], [place], [id number], [place] tel:[phone] [facility] No Information [address] [place], [place], [address] , [place]. tel:[phone] OFFICE/OUTPA TIENT VISIT, EST [facility], [address] [place], [address], [place] tel:[phone] [facility] Anemia1 (chief complaint) thrombocyt osis1 (chief complaint) HTN (chief complaint) Essential (primary) hypertensionAnemiaE ssential thrombocytosis [address] [facility] [place], [address] , [place]. tel:[phone] Referring Provider: Kwame Chow, [address], [place], [place], [address]. tel:[phone] PREV VISIT, NEW, AGE 18-39 [facility], [address], [place], [place], [address], [place] tel:[phone] [facility] Medicine Physical (chief complaint) Encounter for general adult medical exam w abnormal findingsEssential (primary) hypertensionGeneral ized Anxiety DisorderPersonal history of GDMHeadache 201 [address] Geraldo Puente. [address], [place], [place], [address] , [place]. tel:[phone] Referring Provider: Kwame Chow, [address], [place], [place], [address]. tel:[phone] Family History Family Member Type Diagnosis Age At Onset Mother Problem (finding) Hypertension Father Problem (finding) of 49 at brain ane urysm Brother Problem (finding) Alive and well Payers Payer name Insurance type Covered constitution party ID Authoriza tion(s) No Information Social History Type Description Quantity Date Captured Comments Sex Female Smoking Status No Information Chief Complaint And Reason For Visit No Information Plan Of Treatment Date Type Action Status Goal Special diet education compl eted Goal Special diet education compl eted Referral Ordered: CT ANGIOGRAPHY, HEAD ordered History Of Present Illness Encounter Date Complaint History Of Prese nt Illness HTN Pt states that h er BP is around 140/80 at home pt denies any chest pain Pt denies any acute headache thrombocytosis1 her repeat plate let is normal. Pt denies any bleeding disorder Anemia1 Pt has mild iron deficiency anemia. Pt denies any abd pain or any GI bleeding. Pt did have heavy period until about one month ago. Pt did have ablation Pt denies any dizziness , fatigue Physical Pt needs annual physical. Pt has chronic anxiety and depression. Pt takes effexor XR 150 mg daily and doing ok Pt denies any suicidal or homicidal thought. Pt denies any crying spells. Pt used to take propranolol for anxiety and BP but her BP was 109/70 at home and she feels dizzy with propranolol so she has not been taking propranolol for 4 weeks. pt also had gestation DM. Pt denies any polyuria, polydipsia. Pt c/o intermittent throbbing and pressure headache for several years. Pt has photophobia with nasuea with headache. Pt has severe headache once during last 6 months but she has mild headache about once per week Instructions Date Instruction Additional Infor janis Follow a low sodium diet. Relate d to Essential (primary) hypertension Special diet education Related t o Body mass index (BMI) 27.0-27.9, adult Special diet education Related t o Body mass index (BMI) 27.0-27.9, adult Increase physical activity Relat ed to Encounter for general adult medical exam w abnormal findings Weight management Related to Enc ounter for general adult medical exam w abnormal findings Assessments Type Assessment Date No Information
--- OUTSIDE RECORDS SUMMARY | 2025-03-21 08:39 | XMS_ITS | Encounter Summary ---
Author Organization [facility] Address 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
--- OUTSIDE RECORDS SUMMARY | 2025-03-21 08:39 | XMS_ITS | Encounter Summary ---
Author Organization [facility] Address 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 [place], [place] [address] Admit Date: 09/06/2007 YANCI ROBLEDO Sex: F Admit Prov: BARTOLO JARVIS Date: 1980 Primary Care Prov: RADHA BRAY CMRN: [id number] Room: SANDRO SSN: [id number] IMAGING SERVICES Ordering Prov: BARTOLO JARVIS Accession Number: [id number] Interpretation Breast sonogram, 09/06/2007 History: Palpable lump [...] AMK Procedure Note Provider, Historical - 09/06/[address] [address] Admit Date: 09/06/2007 YANCI ROBLEDO Sex: F Admit Prov: BARTOLO JARVIS Date: 1980 Primary Care Prov: RADHA BRAY CMRN: [id number] Room: SANDRO SSN: [id number] IMAGING SERVICES Ordering Prov: BARTOLO JARVIS Interpretation [...] breast documented in this encounter Care Teams Roll Threader Operator Relationship Specialty Start Date End Date Gerald Allen MD PCP - General Family Practice 03/05/20 documented as of this encounter
--- OUTSIDE RECORDS SUMMARY | 2025-03-21 08:39 | XMS_ITS | Encounter Summary ---
Author Organization [employer] Address 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
--- OUTSIDE RECORDS SUMMARY | 2025-03-21 08:39 | XMS_ITS | Encounter Summary ---
Author Organization [employer] Address [address] [place] [address] Care Team Providers Care Director Of Institutional Research Name Role Phone Gerald Allen MD Primary Care Provider [phone] Encounter Details Date Type Department Care Team (Late st Contact Info) Description 10/12/2007 Outpatient Historical [facility] Internal Medicine [address] [place] [phone] Eloisa Leija MD NO ADDRESS ON FILE Social History Tobacco Use Types Packs/Day Years Used Date Smoking Tobacco: Never Assessed Comments Unknown Sex and Gender Information Value Date Recorded Sex Assigned at Not on file Legal Sex Female 2:44 AM 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
--- OUTSIDE RECORDS SUMMARY | 2025-03-21 08:39 | XMS_ITS | Encounter Summary ---
Author Organization [facility] Address [address] [place] [address] Care Team Providers Care Farm Operations Manager Name Role Phone Gerald Allen MD Primary Care Provider [phone] Encounter Details Date Type Department Care Team (Late st Contact Info) Description 10/12/2007 Orders Only [facility] Internal Medicine [address] [phone] Eloisa Leija MD NO ADDRESS ON FILE Social History Tobacco Use Types Packs/Day Years Used Date Smoking Tobacco: Never Assessed Comments Unknown Sex and Gender Information Value Date Recorded Sex Assigned at Not on file Legal Sex Female 2:44 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
--- OUTSIDE RECORDS SUMMARY | 2025-03-21 08:39 | XMS_ITS | Encounter Summary ---
Author Organization [employer] Address [address] [place] [address] Care Team Providers Care Digital Media Buyer Name Role Phone Gerald Allen MD Primary Care Provider [phone] Encounter Details Date Type Department Care Team (Late st Contact Info) Description 10/09/2006 Emergency [facility] Andrea Vides MD [address] [place] [address] Er, Authorized P NO ADDRESS ON FILE Urinary Tract Infection, Site not Specified (Primary Dx) Social History Tobacco Use Types Packs/Day Years Used Date Smoking Tobacco: Never Assessed Comments Unknown Sex and Gender Information Value Date Recorded Sex Assigned at Not on file Legal Sex Female 2:44 AM TOE PUNCHER Gender Identity Not on file Sexual Orientation Not on file documented as of this encounter Plan of Treatment Not on file documented as of this encounter Procedures Procedure Name Priority Date/Time Associated Diagnosis Comments URINALYSIS W/REFLEX MICROSCOPIC Routine 10/09/2006 9:28 AM TOE PUNCHER documented in this encounter Results * (ABNORMAL) URINALYSIS (10/09/2006 9:28 AM TOE PUNCHER) COLOR UA [place] INTERFACE SYSTEM CLARITY UA Slt. Cloudy(A) Clear [...] 4 /HPF INTERFACE SYSTEM 10/09/2006 9:28 AM TOE PUNCHER Narrative INTERFACE SYSTEM - 10/09/2006 10:07 AM TOE PUNCHER Ordered by an unspecified provider. us Historical Provider URINE ORDERABLES Edited INTERFACE SYSTEM Refer to clinic/hospital department documented in this encounter Visit Diagnoses Diagnosis Urinary tract infection, site not specified- Primary documented in this encounter Care Teams Digital Media Buyer Relationship Specialty Start Date End Date Gerald Allen MD PCP - General Family Practice 03/05/20 documented as of this encounter
--- OUTSIDE RECORDS SUMMARY | 2025-03-21 08:39 | XMS_ITS | Encounter Summary ---
Author Organization [employer] Address 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
--- OUTSIDE RECORDS SUMMARY | 2025-03-21 08:39 | XMS_ITS | Encounter Summary ---
Author Organization [employer] Address [address] [place] [address] Care Team Providers Care Certified Histologic Technician Name Role Phone Gerald Allen MD Primary Care Provider [phone] Encounter Details Date Type Department Care Team (Late st Contact Info) Description 06/06/2007 Outpatient Historical [facility] [address] [place] [phone] Eloisa Leija MD NO ADDRESS ON FILE Social History Tobacco Use Types Packs/Day Years Used Date Smoking Tobacco: Never Assessed Comments Unknown Sex and Gender Information Value Date Recorded Sex Assigned at Not on file 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
--- OUTSIDE RECORDS SUMMARY | 2025-03-21 08:39 | XMS_ITS | Clinical Summary ---
Author Organization [facility] Address [address] [place] [address] Care Team Providers Care Food And Beverage Attendant Name Role Phone Gerald Allen MD Primary Care Provider [phone] Allergies Active Allergy Reactions Criticality Noted Date [...] protein) Repeat Pre-E labs in AM pending, Bulloch neg, Hepatitis panel pending 08/26/2012 Nausea with [...] Date Type Department Care Team Description 03/12/2025 External Device Data [facility] ABSTRACTION Provider, Abstract 02/20/2025 External Device Data [facility] ABSTRACTION Provider, Abstract 02/20/2025 External Device Data [facility] ABSTRACTION Provider, Abstract 02/19/2025 External Device Data [facility] ABSTRACTION Provider, Abstract 01/22/2025 External Device Data [facility] ABSTRACTION Provider, [...] on file Legal Sex Female 2:44 AM FORWARD AIR CONTROLLER/AIR OFFICER Gender Identity Not on file Sexual Orientation Not on file 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 Not on file Not on file Not on file Not on file Not on file Last Filed Vital Signs Vital Sign Reading Time Taken Comments Blood Pressure 154/110 09/22/2018 11:02 AM FORWARD AIR CONTROLLER/AIR OFFICER Pulse 82 05/18/2018 11:36 AM CDT Temperature 36.2 C (97.1 F) 11/21/2017 3:43 PM CDT Respiratory Rate 16 05/18/2018 11:36 AM CDT Oxygen Saturation 98% 11/21/2017 3:43 PM CDT Inhaled Oxygen Concentration - - Weight 85.3 kg (188 lb) 09/22/2018 11:02 AM FORWARD AIR CONTROLLER/AIR OFFICER Height 177.8 cm (5' 10) 09/22/2018 11:02 AM FORWARD AIR CONTROLLER/AIR OFFICER Body Mass Index 26.98 09/22/2018 11:02 AM FORWARD AIR CONTROLLER/AIR OFFICER Plan of Treatment Health Maintenance Due Date Last Done Comments HPV VACCINES (1 - 3-dose series) 1997 HEPATITIS B VACCINES (1 of 3 - 19+ 3-dose series) 2001 PAP SMEAR 09/22/2021 09/22/2018, 0204/2018, 08/13/2016, Additional history exists BREAST CANCER SCREENING 2022 03/20/2020 CERVICAL CANCER SCREENING 09/22/2023 HPV/Cotest (21-29) 09/22/2023 09/22/2018, 0 09/16/2017, 08/13/2016, Additional history exists HPV/Cotest (30-65) 09/22/2023 09/22/2018, 0 09/16/2017, 08/13/2016, Additional history exists INFLUENZA VACCINE (#1) 2025 06/08/2012 DTAP/TDAP/TD VACCINES (3 - T d or Tdap) 02/09/2026 02/10/2016, 08/22/2012, 08/08/2001 Medical Devices Implanted Type Area Rnp Device Identifier Shelf Expiration Date Model / Serial / Lot Sling Desara System Kate-[id number] - [id number] Implanted:Qty: 1 on 11/21/2017 by Dane Donis DO at [facility] Sling N/A: Bladder [employer] 05/17/2022 [id number]-[id number] / / [id number] Procedures Procedure Name Priority Date/Time Associated Diagnosis Comments MAMMO SCREEN BILAT W OR WO CAD Routine 03/20/2020 11:19 AM CDT Breast cancer screening by mammogram CERV/VAG CYTO SCREEN PAP RLFX HPV Routine 09/22/2018 11:51 AM FORWARD AIR CONTROLLER/AIR OFFICER Well woman exam with routine gynecological exam [...] CAD DATE: 03/20/2020 11:19 AM DICTATION LOCATION: [facility] HISTORY: Routine yearly screening exam. TECHNIQUE: [...] CAD DATE: 03/20/2020 11:19 AM DICTATION LOCATION: [facility] HISTORY: Routine yearly screening exam. TECHNIQUE: [...] of the breast tissue. us External Provider [facility] MAMMO ORDERABLES Final R esult * CERV/VAG CYTO SCREEN PAP RLFX HPV (09/22/2018 11:51 AM FORWARD AIR CONTROLLER/AIR OFFICER) CLINICAL INFORMATION Information not provided 10/02/2018 9:19 AM FORWARD AIR CONTROLLER/AIR OFFICER [facility] LAST MENSTRUAL PERIOD Information not provided 10/02/2018 9:19 AM FORWARD AIR CONTROLLER/AIR OFFICER [facility] PREV PAP: Information not provided 10/02/2018 9:19 AM FORWARD AIR CONTROLLER/AIR OFFICER [facility] PREV BX: Information not provided 10/02/2018 9:19 AM FORWARD AIR CONTROLLER/AIR OFFICER [facility] SOURCE Endocervix 10/02/2018 9:19 AM FORWARD AIR CONTROLLER/AIR OFFICER [facility] ADEQUACY: SEE COMMENT 10/02/2018 9:19 AM FORWARD AIR CONTROLLER/AIR OFFICER [facility] Comment: Satisfactory for evaluation. Endocervical/transformation zone component present. Age and/or menstrual status not provided PAP INTERP Negative for intraepithelial lesion or malignancy. 10/02/2018 9:19 AM FORWARD AIR CONTROLLER/AIR OFFICER [facility] COMMENT This Pap test has been evaluated with computer assisted technology. 10/02/2018 9:19 AM [facility] TEACHER VISUALLY IMPAIRED: SEE COMMENT 2018 9:19 AM FORWARD AIR CONTROLLER/AIR OFFICER [facility] Comment: RICHIE, CT(ASCP) CT screening location: [place] [address] [place] [address] EXPLANATORY NOTE SEE COMMENT 019 9:19 AM FORWARD AIR CONTROLLER/AIR OFFICER [facility] Comment: EXPLANATORY NOTE: The Pap [...] Unknown Collection / Unknown 09/22/2018 11:51 AM FORWARD AIR CONTROLLER/AIR OFFICER 09/26/2018 1:32 PM FORWARD AIR CONTROLLER/AIR OFFICER Narrative [facility] - 10/02/2018 9:19 AM FORWARD AIR CONTROLLER/AIR OFFICER Performing Organization Information: Site ID: SL Name: [facility] Address: [address] [address] Director: Sharyn Mayfield Dane Raza Super DO PATHOLOGY/CYTOLOGY ORDERABLES F inal Result [facility] [phone] from Last 3 Months or Most Recently Relevant to Health Maintenance Insurance [facility] PREFERRED [employer] Commercial Advance Directives For more information, please contact: [phone] * Full Code (Latest Code Status on [...] 8:57 AM 09/12/2014 10:06 AM Care Teams Food And Beverage Attendant Relationship Specialty Start Date End Date Gerald Allen MD PCP - General Family Practice 03/05/20
--- OUTSIDE RECORDS SUMMARY | 2025-03-21 08:39 | XMS_ITS | Encounter Summary ---
Author Organization [facility] Address [address] [place] [address] Care Team Providers Care Sales Estimator Name Role Phone Melony Murry NP Primary Care Provider [phone] Encounter Details Date Type Department Care Team (Late st Contact Info) Description 02/09/2025 Results Follow-Up [facility] at [address] [address] Irish Padilla NP [address] 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
--- OUTSIDE RECORDS SUMMARY | 2025-03-21 08:39 | XMS_ITS | Encounter Summary ---
Author Organization [facility] Address 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 NEUROLOGIC: CRANIAL NERVES: jewelry engraver II-XII grossly intact. DEEP TENDON REFLEXES: Deep [...] on filedocumented in this encounter Care Teams Manufacturing Finance Manager Relationship Specialty Start Date End Date Gerald Allen MD PCP - General Family Practice 03/05/20 documented as of this encounter
--- OUTSIDE RECORDS SUMMARY | 2025-03-21 08:39 | XMS_ITS | Encounter Summary ---
Author Organization [employer] Address [address] [place] [address] Care Team Providers Care Attendant Self [employer] Store Name Role Phone Gerald Allen MD Primary Care Provider [phone] Encounter Details Date Type Department Care Team (Late st Contact Info) Description 10/12/2007 Outpatient Historical [facility] [address] [place] [id number] Eloisa Leija MD NO ADDRESS ON FILE Social History Tobacco Use Types Packs/Day Years Used Date Smoking Tobacco: Never Assessed Comments Unknown Sex and Gender Information Value Date Recorded Sex Assigned at Not on file 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
--- OUTSIDE RECORDS SUMMARY | 2025-03-21 08:39 | XMS_ITS | Encounter Summary ---
Author Organization [employer] Address [address] [place] [address] Care Team Providers Care Agricultural Mechanic Name Role Phone Gerald Allen MD Primary Care Provider Encounter Details Date Type Department Care Team (Late st Contact Info) Description 05/03/2006 Outpatient Historical [facility] [address] [place] [address] Eloisa Leija MD NO ADDRESS ON FILE Social History Tobacco Use Types Packs/Day Years Used Date Smoking Tobacco: Never Assessed Comments Unknown Sex and Gender Information Value Date Recorded Sex Assigned at Not on file Legal Sex Female 2:44 AM DEMI CHEF Gender Identity Not on file Sexual Orientation [...] on filedocumented in this encounter Care Teams Agricultural Mechanic Relationship Specialty Start Date End Date Gerald Allen MD PCP - General Family Practice 03/05/20 documented as of this encounter
--- OUTSIDE RECORDS SUMMARY | 2025-03-21 08:40 | XMS_ITS | Encounter Summary ---
Author Organization [facility] Address [address] [place] [address] Care Team Providers Care Bioinformatics Research Technician Name Role Phone Unavailable Primary Care Provider Unavailabl e Encounter Details Date Type Department Care Team (Late st Contact Info) Description 03/07/2024 Lab Requisition [facility] [address] [place] [id number] Eloisa Collier PA-C [address] [place] [address] Melanocytic nevi of scalp and [...]
--- OUTSIDE RECORDS SUMMARY | 2025-03-21 08:40 | XMS_ITS | Patient Health Record ---
Author Organization [facility] [employer] Address [address] [place] [address] Care Team Providers Care Provider Relations Representative Name Role Phone Emeka Vasquez Unavailable [phone] Reason For Referral No Information Medications Medication SIG (Take, Route, Frequency, Duration) Notes Start Date End Date Status traZODone HCl 50 MG Oral 09/06/2019 Active Losartan Potassium 100 MG Oral 09/06/2019 Active Progesterone Micronized 200 MG Oral 0 Active Ergocalciferol 1.25 MG (5000 0 UT) Oral 09/06/2019 Active Trintellix 10 MG Oral 09/06/2019 Ac tive Viibryd 10 MG Oral 09/06/2019 Activ e Venlafaxine HCl ER 150 MG Oral 09/06/2019 Active Viibryd 20 MG Oral 09/06/2019 Activ e Venlafaxine HCl ER 75 MG Oral 09/06/2019 Active hydroCHLOROthiazide 25 MG Oral 09/06/2019 Active Immunizations Vaccine Route Administration Date Status Comme nts Influenza virus vaccine, quadrivalent (IIV4), split virus, 0.25 mL dosage Unknown 05/16/2019 Administered Tdap Unknown 02/10/2016 Administered Plan Of Treatment No Information Insurance Providers Payer Name Payer Address Payer Phone Subscriber Number Group Number Insured Name Patient Relationship to Insured Coverage Start Date Coverage End Date [id number] [employer] [address] [place] [address] [id number] JUAN ECHOLS Spouse - patient is the spouse of the insured Medical (General) History Surgical History Surgery Date(Month/Year) Endometr ablate thermal (25549) Fixed suspension procedure of bladder ne ck ([id number]) Appendectomy (65781) Removal of ovarian cyst(s) (93825)
--- OUTSIDE RECORDS SUMMARY | 2025-03-21 08:41 | XMS_ITS | Clinical Summary ---
Author Organization [facility] Address [address] [place] [address] Care Team Providers Care Lead Mechanic Name Role Phone Unavailable Primary Care Provider Unavailabl e Source Comments [facility],non-owned Affiliates and Associated Physician Practices is amultiple site organization consisting of ambulatory clinics and hospital sitesin [place], [place], [place] and [place]. This disclosure is being madepursuant to the Care Everywhere program and may not contain all information available regarding this patient. Last updated 18.[facility] Allergies Active Allergy Reactions Criticality Noted Date [...] Comments Blood Pressure 138/86 07/31/2019 11:56 AM STOCKROOM INVENTORY CLERK Pulse 88 07/31/2019 11:56 AM STOCKROOM INVENTORY CLERK Temperature 36.7 C (98 F) 07/31/2019 11:56 AM STOCKROOM INVENTORY CLERK Respiratory Rate 18 07/31/2019 11:56 AM STOCKROOM INVENTORY CLERK Oxygen Saturation 98% 07/31/2019 11:56 AM STOCKROOM INVENTORY CLERK Inhaled Oxygen Concentration - - Weight 81.6 kg (180 lb) 07/31/2019 11:56 AM STOCKROOM INVENTORY CLERK Height 177.8 cm (5' 10) 07/31/2019 11:56 AM STOCKROOM INVENTORY CLERK Body Mass Index 25.83 07/31/2019 11:56 AM STOCKROOM INVENTORY CLERK Plan of Treatment Health Maintenance Due Date Last Done Comments MAMMOGRAM 1982 HIV SCREENING 1997 HEPATITIS C SCREENING 04/01/2000 DTAP/TDAP/TD VACCINES (1 - Tdap) 2001 HEPATITIS B VACCINE (1 of 3 - 19+ 3-dose series) 2001 HPV VACCINE (1 - 3-dose SCDM series) 2009 PAP SMEAR 09/22/2021 09/22/2018 LIPID TESTING 10/03/2023 [...] REFLEX LDL DIRECT Routine 10/03/2018 10:02 AM STOCKROOM INVENTORY CLERK Pure hypercholesterolemia from Last 3 Months or Most Recently Relevant to Health Maintenance Results * (ABNORMAL) LIPID PROFILE REFLEX LDL DIRECT (10/03/2018 10:02 AM STOCKROOM INVENTORY CLERK) Cholesterol 213(H) 100 - 199 mg/dL [facility] [...] BLOOD SPECIMEN / Unknown 10/03/2018 10:02 AM STOCKROOM INVENTORY CLERK 10/03/2018 Narrative [facility] INSURANCE BILL - 10/04/2018 7:15 AM STOCKROOM INVENTORY CLERK A courtesy copy of this report has been sent to the patient. Resulting Agency Comment [facility] [place] [address] [id number] Oli Tate MD LAB - CHEMISTRY ORDERABLES F inal Result [facility] INSURANCE BILL [address] [place] [address] from Last 3 Months or Most Recently Relevant to Health Maintenance Insurance ANTHEM ANTHEM Member Subscriber Plan / Payer (Ef fective 2018-Present) Name:Kae Erazo Relation to Subscriber:Spouse Name:JUAN ERAZO Date of :1978 (Home) Address: [address] [place] [address] Payer ID:[id number] (NAIC) Type:PPO Address: [facility] [id number] [place] [id number]
--- NOTE | 2025-04-15 13:37 | WPDHOMESLEEP ---
Sleep Study - Home Unattended Date of Study: 03/21/25 Ordering Provider: Melony Murry APRN Interpreting Provider: Marcia Villegas DO Home Sleep Study Type: Watch PAT Height: 1.78 m Weight: 70.307 kg Body Mass Index: 22.2 Neck Circumference (inches): 13 [place]: 7 Reason for Sleep Study Excessive daytime sleepiness Sleep History The patient is a 45-year-old female that had a sleep study ordered for evaluation of sleep apnea. The patient admits to excessive daytime sleepiness and trouble staying asleep. She does snore loudly. She denies having interruptions in breathing while asleep. She denies choking or gasping at night. She denies having trouble breathing on her back. She denies morning headaches. She does have a dry or sore mouth/ throat in the morning. She denies nocturnal heartburn. She denies nocturia. She does have trouble falling asleep. She does have difficulty returning to sleep if she wakes up throughout the night. She denies any hypnotic or sedative use. She denies feeling anxious about sleep. She does feel tired or sleepy during the day. She does feel tired in the morning. She denies having the urge to fall asleep during the day. She denies feeling drowsy while driving. She denies sleep paralysis, cataplexy and hypnagogic/ hypnopompic hallucinations. She does clench or grind her teeth. She denies kicking or jerking her legs excessively. She denies having a restless feeling in her legs. She goes to bed at 10:00 p.m. on work days and at 11:00 p.m. on her days off. It takes her 30 minutes to fall asleep. She gets 6 hours of sleep on work days and 7 hours on her days off. Her sleep is a little more restorative on days off. She denies any planned naps. She denies dream enactment behavior. She denies sleep walking. She consumes 3-4 caffeinated beverages per day. She has 1 alcoholic beverage 1-2 nights per week. She denies tobacco use. She exercises 1-2 nights per week. [facility] Past Medical History Medical History (Updated 04/15/25 @ 13:53 by Marcia Villegas DO) Irritable bowel High blood pressure Gestational diabetes Depression Anxiety Anemia Surgical History Surgical History [place] teeth extracted S/P D&C (status post dilation and curettage) History of bladder suspension procedure History of endometrial ablation History of cryosurgery History of appendectomy Family History Family History Grandparent Diabetes mellitus Grandparent Heart attack Mother Hypertension High cholesterol Father Hypertension High cholesterol Brain aneurysm Social History Social History Smoking status: Never smoker Alcohol intake: current Alcohol use details: 2-4 a week Substance use: never Do You Feel Safe in your Home?: Yes Lack of Transportation: No Lack of Food: Never True Current Housing: I Have Housing Concerned About Future Housing: No Difficulty Paying Gas/Electric Bills: No Difficulty Paying for Meds: No Currently Unemployed: No Education: Bachelor's Degree Difficulty w/ Childcare or Family Care: No Living arrangements: with family Occupation/Education: occupation Additional occupation/education comments: [employer] Gender identity (if verbalized by the patient): Female Agree to blood products: Yes Medications Home Medications ?Medication ?Instructions ?Recorded ?Confirmed ?Type Adderall BYMOUTH 01/18/24 02/06/25 History dextroamphetamine-amphetamine ER 10 mg PO DAILY 01/18/24 02/06/25 History 10 mg 24hr capsule,extend release (Adderall XR) venlafaxine 150 mg 150 mg PO DAILY #90 caps 01/19/24 02/06/25 Rx capsule,extended release 24 hr (Effexor XR) losartan 100 1 tablet PO DAILY #90 tabs 09/11/24 02/06/25 Rx mg-hydrochlorothiazide 25 mg tablet metformin 500 mg tablet,extended See Rx Instructions .Route 02/20/25 Rx release 24 hr .COMPLEX #90 tabs Sleep Procedure The sleep study was completed using LinkpassT a technically adequate device with seven channels: peripheral arterial tone, actigraphy, body position, snore, respiratory movement, pulse oximetry, sleep staging, and heart rate. Prior to using the device, the patient received verbal and written instructions for its application and was provided with the help desk phone number for additional telephonic instruction with 24-hour availability of qualified personnel to answer questions. The study was scored using CMS guidelines. Sleep Architecture The total recording time is 9 hrs, 59 min. The total sleep time is 8 hrs, 58 min. Sleep latency is 10 minutes. REM latency is 51 minutes. The patient had 9 episodes of waking. Sleep architecture shows 9.7% deep sleep, 72.2% light sleep, and (as % Total Sleep Time) showed NREM (Light 72.2%; Deep 9.7%), and a 18.1% stage REM. The patient spent 54.8% of total sleep time in the supine position. Sleep efficiency was 89.82. Respiratory Analysis The overall AHI (pAHI 4%:) is 1.7. The overall AHI (pAHI 3%:) is 4.0. The central AHI is 0.0. The AHI was 2.7 in NREM and 9.9 in REM sleep. The AHI was 6.1 in Supine and 1.5 in Non-supine sleep. Percent of Talon Perez respirations is 0.0. Oximetry Data The oxygen desaturation index (TIN 4%:) is 0.7. The mean saturation is 95%, and the lowest saturation is 90%. Time spent with saturation < 88% is 0.0 minutes. Snoring Profile Snoring average intensity is 41 dB. The patient snored above 45 decibels for 15.3 minutes, 2.8% of sleep time. Cardiac Profile The average pulse rate is 60 beats per minutes. The lowest pulse rate is 44 bpm. The highest pulse rate reported is 97 bpm. atrial fibrillation was not detected. Premature beats occur <0.1 per minute. Assessment and Plan Assessment and Plan (1) Sleep disturbances: Code(s): G47.9 - Sleep disorder, unspecified Status: Acute Assessment and Plan: The patient had an overall AHI of 1.7 with desaturation down to 90%. This is not consistent with sleep-disordered breathing. If there is further concern for a sleep disorder, I recommend that the patient have a split study. Data The data obtained during this sleep study is adequate for interpretation. Certification This sleep study has been reviewed by a board certified sleep medicine physician.
[2025-04-15 13:56] VITALS: BMI 22.2
== END 2025-03-22 10:47 | disposition home or self-care (01) ==
PROVIDERS: PCP Nurse Practitioner Adult Health; Visit Provider Nurse Practitioner Adult Health
DX: G47.10 Hypersomnia, unspecified (principal); R06.83 Snoring; G47.9 Sleep disorder, unspecified
CPT/HCPCS: 95800